=== PATIENT | male | born 1940 | race Caucasian/White ===

== ENCOUNTER 2017-04-12 02:05 | Inpatient (IN) ==
[2017-04-12] MEDS ORDERED: IOPAMIDOL 100 ML BOTTLE IJ ONE (02:06)
[2017-04-12] MEDS ORDERED: ONDANSETRON 4 MG/2 ML VIAL IV ONE (02:49)
--- NOTE | 2017-04-12 02:56 | Emergency Department Note ---
Abdominal Pain HPI - General Chief Complaint: Abdominal Pain Stated Complaint: upper right abd. pain/vomiting Time Seen by Provider: 04/12/17 02:49 Source: patient Mode of arrival: ambulatory - History of Present Illness HPI Narrative: This 76-year-old male comes to the emergency room on his own accord with onset of pain around 9 PM on Tuesday (about 5 hours before his emergency room visit). No previous similar kind of pain. He has had some suspicion of gallbladder disease in 2013. He denies fevers chills or sweats. He has had significant nausea with vomiting since around 9 or 10 PM. He denies diarrhea or constipation or hematochezia. No unusual foods or other changes in his regimen. Is not taking any NSAIDS, EtOH is 1 per week. Has a hx of kidney stone (once). - Related Data Home Medications Medication Instructions Recorded Confirmed Acyclovir [Zovirax] 400 mg PO DAILY 04/12/17 04/12/17 Alfuzosin HCl [Alfuzosin HCl ER] 10 mg PO DAILY 04/12/17 04/12/17 Atorvastatin [Lipitor] 20 mg PO HS 04/12/17 04/12/17 Finasteride [Proscar] 5 mg PO DAILY 04/12/17 04/12/17 Hydrochlorothiazide 12.5 mg PO DAILY 04/12/17 04/12/17 Lisinopril [Zestril] 10 mg PO DAILY 04/12/17 04/12/17 Omeprazole 20 mg PO DAILY 04/12/17 04/12/17 sitaGLIPtin [Januvia] 100 mg PO DAILY 04/12/17 04/12/17 Allergies Allergy/AdvReac Type Severity Reaction Status Date / Time No Known Drug Allergies Allergy Unverified 04/12/17 02:15 Review of Systems Review of Systems: No major weight loss or weight gain. See review of systems. He denies dysuria as well. He denies chest pains and palpitations, shortness of breath, wheezing , syncope, headache, paresthesia of the extremities, weakness. Abdominal Pain PMH - Past Medical History Medical history: Reports: DVT (Left lower extremity in a couple of years ago.), diabetes (Type II, on Januvia.), hypertension, kidney stones, other (NO bradycardia). Denies: coronary artery disease - Social History Smoking status: Current some day smoker Alcohol use: Reports: Occasionally (about once a week one drink.) Physical Exam - General Limitations: other (Somewhat sleepy and tired and limited interactiveness but he does arouse easily and seems appropriate.) General appearance: alert - Eye Eye exam: Present: normal appearance, PERRL, EOMI - ENT ENT exam: mucous membranes dry - Neck Neck exam: Present: trachea midline. Absent: tenderness, lymphadenopathy - Respiratory Respiratory exam: Present: normal lung sounds bilaterally. Absent: respiratory distress, wheezes, stridor, accessory muscle use - Cardiovascular Cardiovascular exam: Present: regular rate (But bradycardic.). Absent: systolic murmur, diastolic murmur - Abdominal Exam Abdominal exam: Present: soft, tenderness (In the right upper quadrant to deep palpation). Absent: distention, guarding, rebound, rigidity, organomegaly, mass Abdominal tenderness: Present: RUQ, moderate - Extremities Exam Extremities exam: Absent: tenderness, normal capillary refill, pedal edema, calf tenderness - Neurological Exam Neurological exam: Present: alert, oriented X3 - Psychiatric Psychiatric exam: Present: flat affect - Skin Skin exam: Present: warm, dry Course Vital Signs Temperature 96.9 F L 04/12/17 02:06 Pulse Rate 58 L 04/12/17 02:06 Respiratory Rate 16 04/12/17 02:06 Blood Pressure 195/110 04/12/17 02:06 Pulse Oximetry (%) 96 04/12/17 02:06 Temperature 96.9 F L 04/12/17 02:06 Pulse Rate 65 04/12/17 06:05 Respiratory Rate 17 04/12/17 06:05 Blood Pressure 187/104 04/12/17 06:01 Pulse Oximetry (%) 87 L 04/12/17 06:05 Abdominal Pain - Lab Data Lab results reviewed: Yes I reviewed the patient's lab results. Result diagrams: 04/12/17 02:58 04/12/17 02:58 Lab Results 04/12/17 04/12/17 04/12/17 Range/Units 02:58 02:58 02:58 WBC 9.0 (4.5-11.0) K/mcL RBC 4.74 (4.50-5.90) M/mcL Hgb 15.1 (13.5-16.5) g/dL Hct 44.2 (41.0-55.0) % POC Hct 43.0 (41.0-55.0) % MCV 93.2 (80.0-100.0) fL MCH 31.8 (26.0-34.0) pg MCHC 34.1 (31.0-36.0) g/dL RDW 13.9 (11.5-14.5) % Plt Count 153 (140-440) K/mcL MPV 9.3 (7.4-10.4) fL Gran % 84.0 H (38.0-78.0) % Lymph % (Auto) 10.0 L (15.5-49.0) % Barron % (Auto) 4.9 (1.0-12.0) % Eos % (Auto) 0.8 (0.0-7.0) % Baso % (Auto) 0.3 (0.0-2.0) % Gran # 7.6 (1.8-8.0) K/mcL Lymph # (Auto) 0.9 L (1.5-4.8) K/mcL Barron # (Auto) 0.4 (0.1-0.9) K/mcL Eos # (Auto) 0.1 (0.0-0.7) K/mcL Baso # (Auto) 0 (0.0-0.3) K/mcL VBG Lactic Acid 1.4 (0.5-2.2) mmol/L POC Sodium 144 (133-145) mmol/L Sodium 144 (133-145) mmol/L POC Potassium 2.5 L* (3.3-5.1) mmol/L Potassium 2.7 L* (3.3-5.1) mmol/L POC Chloride 100 (96-108) mmol/L Chloride 100 (96-108) mmol/L Carbon Dioxide 29 (22-30) mmol/L POC Total CO2 30 (22-30) mmol/L Anion Gap 15.0 (8-16) POC BUN 16 (8-23) mg/dl BUN 15 (8-23) mg/dl Creatinine 0.8 (0.7-1.2) mg/dl POC Creatinine 0.7 (0.7-1.2) mg/dl GFR Calculation 87 Glucose 159 H (70-105) mg/dL POC Glucose 162 H (70-105) mg/dL Calcium 8.9 (8.6-10.4) mg/dl POC WB Ioniz Calcium 1.05 L (1.16-1.32) mmol/L Total Bilirubin 1.0 (0.0-1.0) mg/dL AST 17 (0-37) U/l ALT 12 (0-40) U/l Alkaline Phosphatase 71 (39-117) U/L Total Protein 7.3 (5.9-8.4) gm/dL Albumin 4.5 (3.2-5.2) gm/dL Globulin 2.8 (2.2-3.7) gm/dL Albumin/Globulin Ratio 1.6 (1.0-2.3) Lipase 25 (7-60) U/L - Radiology Data Radiology results reviewed: Yes I reviewed the patient's radiology results. Call from Radiologist, Dr. Farrell, reporting that there are gallstones, gallbladder is enlarged, there is no ductal dilatation or wall thickening. He does have a hiatal hernia. He has multiple diverticula but no CT evidence of diverticulitis. Disposition Pt seen by [facility] [employer] only: No Clinical Impression: Abdominal pain, right upper quadrant, Enlarged gallbladder, Hypokalemia, Diverticulosis large intestine w/o perforation or abscess w/o bleeding Diabetes mellitus type 2, uncontrolled Qualifiers: Diabetes mellitus complication status: with hyperglycemia Diabetes mellitus shelter insulin use: without shelter use Qualified Code(s): E11.65 - Type 2 diabetes mellitus with hyperglycemia Summary: Patient was able to sleep much of the time but intermittent awakening due to needing to go to the bathroom and due to pain. His pain was treated with 1 mg of Dilaudid for this first dose and then a second dose and then was given morphine 4 mg. His called back and reported that previously with a kidney stone Toradol has worked very well for him. Case was discussed with Dr. Mathis, surgeon, with agreement to put him in the hospital and that Dr. Mathis would see him and consider surgical intervention this evening or tomorrow morning. This is in light of his CT findings of gallstones and enlarged gallbladder with persistent right upper quadrant pain. His labs did not demonstrate an elevated white count, he did not have tachycardia, his lactic acid was normal, and he does not exhibit fever. Therefore no antibiotics were given. Patient's care is being transferred to Dr. Mathis who will then further decide interventions. Orders written for repeat BMP because of his hypokalemia (a 30 meq potassium rider was given during the night). He seemed to keep his oral potassium down well although initially had some nausea. At time of discharge, consider holding his hydrochlorothiazide, although his poor po intake and or vomiting ( but was limited) could have contributed. With urinary frequency and small in amounts and on 2 medications for prostate enlargement/disease, I also ordered a postvoid residual. His BP systolic remained rather elevated. he was give an evening dose of 20 mg of lisinopril in early AM hours, and I wrote for 20 mg daily in AM at 9 AM. His usual dose is 10 mg daily. He may need additional anti-htn intervention. Renal function was 0.8 creatinine and so for pain control I added toradol 30 mg IV q 6 hrs PRN. Disposition: Xfer As Outpt/Obs ([facility]) Condition: Fair Additional Instructions: Consider stop hydrochlorothiazide as it may have been the cause of the low potassium or at least contributed. MONITOR BP CAREFULLY. BP med (lisinopril) increase to 20 mg daily. Referrals: Zunilda Larson MD [Primary Care Provider] -
[2017-04-12] MEDS: HYDROmorphone 2 MG/ML SYRINGE IV SCH ×2 (02:58→03:36)
[2017-04-12] MEDS ORDERED: HYDROmorphone 2 MG/ML SYRINGE ONE (02:59)
[2017-04-12] MEDS ORDERED: POTASSIUM CHLORIDE 30 MEQ in DEXTROSE 5% IN WATER 500 ML IV ONE (03:21)
[2017-04-12] MEDS ORDERED: POTASSIUM CHLORIDE 20 MEQ TABLET PO ONE (03:21)
[2017-04-12] MEDS ORDERED: POTASSIUM CHLORIDE 20 MEQ/10 ML VIAL IV ONE (03:29)
[2017-04-12] MEDS ORDERED: POTASSIUM CHLORIDE 10 MEQ TABLET PO ONE (03:30)
[2017-04-12 03:53] LABS: Basophils # (Auto) 0 K/mcL (0.0-0.3); Basophils % (Auto) 0.3 % (0.0-2.0); Eosinophils # (Auto) 0.1 K/mcL (0.0-0.7); Eosinophils % (Auto) 0.8 % (0.0-7.0); Lymphocytes # (Auto) 0.9 K/mcL (1.5-4.8); Mean Cell Volume 93.2 fL (80.0-100.0); Mean Corpuscular HGB Conc 34.1 g/dL (31.0-36.0); Mean Corpuscular Hemoglobin 31.8 pg (26.0-34.0); Monocytes # (Auto) 0.4 K/mcL (0.1-0.9); Monocytes % (Auto) 4.9 % (1.0-12.0); Platelet Count 153 K/mcL (140-440); RBC 4.74 M/mcL (4.50-5.90); Red Cell Distribution Width 13.9 % (11.5-14.5)
[2017-04-12 04:10] LABS: ALT/SGPT 12 U/l (0-40); Albumin 4.5 gm/dL (3.2-5.2); Albumin/Globulin Ratio 1.6 (1.0-2.3); Alkaline Phosphatase 71 U/L (39-117); Blood Urea Nitrogen 15 mg/dl (8-23); Lipase 25 U/L (7-60)
[2017-04-12] MEDS ORDERED: LISINOPRIL 20 MG TABLET PO ONE (05:01)
[2017-04-12] MEDS ORDERED: KETOROLAC 30 MG/ML VIAL IV PRN (06:37)
[2017-04-12] MEDS: HYDROmorphone 2 MG/ML SYRINGE IV PRN ×2 (07:12→12:08)
[2017-04-12] MEDS: LACTATED RINGERS 1,000 ML IV SCH ×3 (09:00→23:16)
[2017-04-12] MEDS: LISINOPRIL 20 MG TABLET PO SCH (09:15)
[2017-04-12] MEDS: PANTOPRAZOLE 40 MG VIAL IV SCH (09:15)
--- NOTE | 2017-04-12 10:51 | Cat Scan Report ---
CLINICAL INFORMATION: Abdominal pain and vomiting COMPARISON: The 02/12/[address] TECHNIQUE: Following enteric contrast, 80 cc of Isovue-300 were injected intravenously, and 60 seconds later, 2.5 mm helical slices were obtained from the mid heart through the subtrochanteric regions. Following reconstruction, 2.5 mm sagittal, coronal and axial reformatted images were processed and reviewed at bone, lung and soft tissue windows. Five minutes later, 5 mm helical slices were obtained from the mid heart through the kidneys and viewed at soft tissue windows. FINDINGS: Moderate hiatal hernia is mildly increased in size. There is bandlike groundglass infiltrate in both posterior lower lobes which is new. Minor basilar scarring also noted. No effusion. The heart is mildly enlarged and extraordinarily heavy fibrofatty calcific plaque seen within the left main, proximal LAD mid LAD and right coronary arteries There are multiple small stones now seen within the gallbladder. Gallbladder is slightly enlarged, but is no evidence of wall thickening to support cholecystitis. Intrahepatic and common bile ducts are normal caliber: CBD is 6 mm. There is a 16.8 mm indeterminate low-attenuation lesion projects from the anterior cortex - superior pole the right kidney. This was not seen on previous abdomen CT or MRI from 02/06/2014. A 15 mm simple cyst in the mid left kidney is unchanged. A few nonobstructing stones within both kidneys are seen, but there is no evidence of obstructing stone or hydronephrosis. The adrenal glands, spleen pancreas and aorta, including aortic branches, are normal in size, configuration and attenuation without focal lesion. Images through the pelvis show urinary bladder to be unremarkable. Prostate and seminal vesicles are normal. Multiple sigmoid diverticuli are present, but no evidence of diverticulitis. The remaining colon and small bowel are unremarkable. The stomach is poorly distended creating apparent thickening of the gastric wall - this is likely normal. Appendix not identified with certainty, but is no inflammation in the region of the appendix. There is no free air, free fluid and no adenopathy. A 3 cm periumbilical hernia contains only mesenteric fat. Bone windows shows no osseous abnormality. IMPRESSION: 1. Cholelithiasis. Gallbladder and bile ducts are otherwise normal 2. 16.8 mm indeterminate low-attenuation lesion - superior pole the right kidney - [address] and MRI 02/06/2014. Suggest ultrasound to determine solid versus cyst 3. Moderate hiatal hernia 4. Extraordinarily heavy fibrofatty plaque in the proximal coronary arteries particularly the left main and LAD and right. Either occlusion or hemodynamically significant stenosis is strongly suspected. Suggest urology referral for stress testing or CT coronary arteriogram 5. Small nonobstructing stones in the calyces of both kidneys - all less than 4 mm Interpreted and Authenticated by: Anthony Farrell 04/12/17
[2017-04-12 11:10] LABS: Blood Urea Nitrogen 13 mg/dl (8-23)
--- NOTE | 2017-04-12 13:11 | XRay Report ---
CLINICAL INFORMATION: Preop COMPARISON: 02/07/2014 FINDINGS: Film was taken with suboptimal inspiratory result, lordotic positioning and right rotation which accentuates the cardiomediastinal silhouette. This is normal. Mild airspace disease in the left base is likely atelectasis or scarring. Similar findings seen 2013. No effusions IMPRESSION: Mild atelectasis or scarring left base Interpreted and Authenticated by: Anthony Farrell 04/12/17
[2017-04-12 13:15] LABS: Basophils # (Auto) 0 K/mcL (0.0-0.3); Basophils % (Auto) 0.1 % (0.0-2.0); Eosinophils # (Auto) 0.1 K/mcL (0.0-0.7); Eosinophils % (Auto) 0.7 % (0.0-7.0); Granulocytes % (Auto) 81.4 % (38.0-78.0); Lymphocytes # (Auto) 0.7 K/mcL (1.5-4.8); Mean Cell Volume 93.3 fL (80.0-100.0); Mean Corpuscular HGB Conc 34.8 g/dL (31.0-36.0); Mean Corpuscular Hemoglobin 32.4 pg (26.0-34.0); Monocytes % (Auto) 10.8 % (1.0-12.0); Platelet Count 148 K/mcL (140-440); RBC 4.15 M/mcL (4.50-5.90); Red Cell Distribution Width 13.6 % (11.5-14.5)
[2017-04-12 13:46] LABS: ALT/SGPT 12 U/l (0-40); Albumin/Globulin Ratio 1.7 (1.0-2.3); Alkaline Phosphatase 53 U/L (39-117); Bilirubin,Direct 0.2 mg/dL (0.0-0.3); Blood Urea Nitrogen 13 mg/dl (8-23); Gamma Glutamyl Transpeptidase 16 U/L (8-61); Magnesium 1.1 mg/dL (1.6-2.5); Uric Acid 3.6 mg/dL (2.5-8.0)
--- NOTE | 2017-04-12 14:28 | General Surg History&Physical ---
History of Present Illness Patient information: Note initiated : 04/12/17 at 2:26 pm Service Date, if different from initiated Date: [] Patient: Surinder Powers a 76 y/o M admitted on for upper right abd. pain/ vomiting. Chief Complaint: Abdominal pain with nausea and vomiting [] HPI: Mr. Powers is a 76 year old M with onset of right subcostal pain with associated nausea and vomiting about 9 PM last evening. He had 5 more episodes of nausea and vomiting and his pain became worse. He was brought to the emergency room where it was noted that he had a tender abdomen. CT of the abdomen revealed dilated gallbladder with stones but no acute inflammation. His liver panel was normal. After his symptoms were controlled he was admitted and he will be prepared for cholecystectomy in the morning. Review of Systems - Constitutional fatigue, malaise, snoring, weakness - EENT Nose, mouth and throat: no dysphagia, no hoarseness - Cardiovascular dyspnea on exertion, other (Shortness of breath at rest), no chest pain at rest , no chest pain with activity - Respiratory dyspnea on exertion, snoring - Gastrointestinal abdominal pain, bloating, constipation, heartburn, nausea, vomiting - Genitourinary change in urinary stream, urinary frequency, urinary hesitancy, urinary urgency - Musculoskeletal abnormal gait, arthralgias - Integumentary no bleeding lesions, no changing lesions, no new lesions, no pruritus, no rash - Neurological no abnormal speech, no confusion, no dizziness, no headache(s), no syncope - Psychiatric no anxiety, no confusion, no depression, no hallucinations - Endocrine fatigue, heat intolerance - Hematologic/Lymphatic no easy bleeding, no easy bruising, no lymphadenopathy - Allergic/Immunologic no tongue swelling, no throat swelling, no itchy eyes, no uticaria, no wheezing , no lip swelling Past History Past medical history: Hypertension Diabetes mellitus Benign prostatic hypertrophy History of DVT left leg Past surgical history: L4 discectomy Left knee arthroscopy Past family history: Father age 86 due to coronary artery disease and [place] Mother age 91 due to general debility after pelvic fracture Past social history: Lives locally Everyday smoker Alcohol use twice a week Denies drug use Medications and Allergies Home Medications Medication Instructions Recorded Confirmed Type Acyclovir [Zovirax] 400 mg PO DAILY 04/12/17 04/12/17 History Alfuzosin HCl [Alfuzosin HCl ER] 10 mg PO DAILY 04/12/17 04/12/17 History Atorvastatin [Lipitor] 20 mg PO HS 04/12/17 04/12/17 History Finasteride [Proscar] 5 mg PO DAILY 04/12/17 04/12/17 History Hydrochlorothiazide 12.5 mg PO DAILY 04/12/17 04/12/17 History Lisinopril [Zestril] 10 mg PO DAILY 04/12/17 04/12/17 History Omeprazole 20 mg PO DAILY 04/12/17 04/12/17 History sitaGLIPtin [Januvia] 100 mg PO DAILY 04/12/17 04/12/17 History Allergies Allergy/AdvReac Type Severity Reaction Status Date / Time No Known Drug Allergies Allergy Unverified 04/12/17 02:15 Exam Temp Pulse Resp BP Pulse Ox 98.0 F 76 16 151/89 94 04/12/17 12:00 04/12/17 08:18 04/12/17 12:00 04/12/17 12:00 04/12/17 12:00 - General physical appearance well developed, well nourished, no distress - Eyes PERRL, normal ocular movement - ENT normal pinna, normal nares, normal mucosa, no hearing loss, no congestion - Head Head exam IM: Present: atraumatic, normocephalic - Neck no masses, no bruits, trachea midline, no lymphadectomy, no venous distension - Cardiovascular Cardiovascular exam IM: Present: normal rate and rhythm, RRR, +S1, +S2. Absent : gallop, JVD, systolic murmur - Respiratory normal expansion, normal respiratory effort, clear to percussion, clear to auscultation - Abdomen Abdomen: Present: soft, tender (Tenderness right subcostal region without guarding or rebound), bowel sounds Hernia: Present: umbilical (Reducible umbilical hernia) - Genitourinary Present: normal penis with no external lesions - Integumentary Present: no rash, no growths, no abnormal pigmentation - Neurologic Present: normal coordination, normal sensation - Musculoskeletal Present: normal gait, normal posture - Psychiatric Present: oriented to time, oriented to person, oriented to place, speech is normal, memory intact Assessment and Plan (1) Cholelithiasis and cholecystitis without obstruction Patient counseled for laparoscopic cholecystectomy which will be done in the morning Status: Acute (2) Hypertension We will hold medications at this time Status: Acute (3) Diabetes mellitus type 2, uncontrolled Well-controlled with sliding scale insulin coverage Status: Acute Qualifiers: Diabetes mellitus complication status: with hyperglycemia Diabetes mellitus half-way insulin use: without terminologist use Qualified Code(s): E11.65 - Type 2 diabetes mellitus with hyperglycemia (4) Hypokalemia Status: Acute
[2017-04-12] MEDS ORDERED: POTASSIUM CHLORIDE 40 MEQ in DEXTROSE 5% IN WATER 500 ML IV ONE (14:39)
[2017-04-12] MEDS ORDERED: MAGNESIUM SULFATE 32.48 MEQ in DEXTROSE 5% IN WATER 50 ML IV ONE (14:39)
[2017-04-12] MEDS: ONDANSETRON 4 MG/2 ML VIAL IV PRN (16:20)
[2017-04-13] MEDS: ONDANSETRON 4 MG/2 ML VIAL IV PRN ×2 (00:04→03:52)
[2017-04-13] MEDS: HYDROmorphone 2 MG/ML SYRINGE IV SCH ×2 (01:41)
[2017-04-13] MEDS: PANTOPRAZOLE 40 MG VIAL IV SCH (06:42)
[2017-04-13 07:06] LABS: Basophils # (Auto) 0 K/mcL (0.0-0.3); Basophils % (Auto) 0.1 % (0.0-2.0); Eosinophils # (Auto) 0.1 K/mcL (0.0-0.7); Eosinophils % (Auto) 0.8 % (0.0-7.0); Granulocytes % (Auto) 80.1 % (38.0-78.0); Lymphocytes # (Auto) 0.8 K/mcL (1.5-4.8); Lymphocytes % (Auto) 6.9 % (15.5-49.0); Mean Cell Volume 93.1 fL (80.0-100.0); Mean Corpuscular Hemoglobin 32.5 pg (26.0-34.0); Monocytes # (Auto) 1.4 K/mcL (0.1-0.9); Monocytes % (Auto) 12.1 % (1.0-12.0); Platelet Count 124 K/mcL (140-440); RBC 3.77 M/mcL (4.50-5.90); Red Cell Distribution Width 13.6 % (11.5-14.5)
[2017-04-13] MEDS ORDERED: cefOXitin 2 GM in DEXTROSE 5% IN WATER 50 ML IV ONE (07:28)
[2017-04-13 07:37] LABS: ALT/SGPT 18 U/l (0-40); Albumin 3.5 gm/dL (3.2-5.2); Albumin/Globulin Ratio 1.5 (1.0-2.3); Alkaline Phosphatase 44 U/L (39-117); Bilirubin,Direct 0.5 mg/dL (0.0-0.3); Blood Urea Nitrogen 12 mg/dl (8-23); Gamma Glutamyl Transpeptidase 16 U/L (8-61); Magnesium 1.9 mg/dL (1.6-2.5)
[2017-04-13] MEDS ORDERED: POTASSIUM CHLORIDE 20 MEQ in DEXTROSE 5% IN WATER 100 ML IV ONE (07:57)
[2017-04-13] MEDS ORDERED: ROCURONIUM 10 MG/ML ML IV ONE (08:00)
[2017-04-13] MEDS ORDERED: LIDOCAINE HCL/PF 100 MG/5 ML SYRINGE IV ONE (08:00)
[2017-04-13] MEDS ORDERED: MIDAZOLAM 2 MG/2 ML VIAL IV ONE (08:00)
[2017-04-13] MEDS ORDERED: fentaNYL 100 MCG/2 ML VIAL IV ONE (08:00)
[2017-04-13] MEDS ORDERED: METOPROLOL TARTRATE 5 MG/5 ML VIAL IV ONE (08:00)
[2017-04-13] MEDS ORDERED: PROPOFOL 200 MG/20 ML VIAL IV ONE (08:00)
[2017-04-13] MEDS ORDERED: GLYCOPYRROLATE 0.2 MG/ML VIAL IV ONE (08:00)
[2017-04-13] MEDS ORDERED: PHENYLEPHRINE 10 MG/ML VIAL IV ONE (08:00)
[2017-04-13] MEDS ORDERED: ONDANSETRON 4 MG/2 ML VIAL IV ONE (08:00)
[2017-04-13] MEDS ORDERED: KETAMINE 100 MG/ML ML IV ONE (08:00)
[2017-04-13] MEDS ORDERED: POTASSIUM CHLORIDE 20 MEQ in DEXTROSE 5% IN WATER 250 ML IV ONE (08:15)
[2017-04-13] MEDS ORDERED: FINASTERIDE 5 MG TABLET PO SCH (09:00)
[2017-04-13] MEDS ORDERED: ACETAMINOPHEN 1,000 MG/100 ML BOTTLE IV ONE (09:01)
[2017-04-13] MEDS ORDERED: METOPROLOL TARTRATE 5 MG/5 ML VIAL IV PRN (09:01)
[2017-04-13] MEDS ORDERED: METHOCARBAMOL 1,000 MG/10 ML VIAL IV PRN (09:01)
[2017-04-13] MEDS ORDERED: HYDROmorphone 2 MG/ML SYRINGE IV PRN ×2 (09:01→10:34)
[2017-04-13] MEDS ORDERED: MEPERIDINE 25 MG/ML SYRINGE IV PRN (09:01)
[2017-04-13] MEDS ORDERED: ONDANSETRON 4 MG/2 ML VIAL IV PRN ×3 (09:01→10:56)
[2017-04-13] MEDS ORDERED: BENZOCAINE/MENTHOL 1 LOZENGE PO PRN (09:01)
[2017-04-13] MEDS ORDERED: fentaNYL 100 MCG/2 ML VIAL IV PRN (09:01)
[2017-04-13] MEDS ORDERED: IPRATROPIUM/ALBUTEROL 3 ML AMPUL.NEB NEB PRN (09:01)
[2017-04-13] MEDS ORDERED: KETOROLAC 15 MG/ML VIAL IV PRN (09:01)
[2017-04-13] MEDS ORDERED: diphenhydrAMINE 50 MG/ML VIAL IV PRN (09:01)
[2017-04-13] MEDS ORDERED: MEPERIDINE 50 MG/ML SYRINGE IM PRN (09:01)
[2017-04-13] MEDS: LACTATED RINGERS 1,000 ML IV SCH ×4 (09:13→21:38)
[2017-04-13] MEDS ORDERED: LACTATED RINGERS 1,000 ML IV SCH ×4 (09:15→10:56)
--- NOTE | 2017-04-13 09:50 | Brief Operative Note ---
Date of procedure: 04/13/17 Pre-op diagnosis: cholelithiasis with cholecystitis Post-op diagnosis: other (acute cholecystitis with cholelithiasis) Procedure: laparoscopic cholecystectomy Grafts/Implants: No (bonnie drainx 1) Anesthesia: GETA Findings: acute severe cholecystitis with empyema of gallbladder Complications: none Surgeon: Mykel Mathis Estimated blood loss (cc): 100 Specimens Removed/Pathology: other (gallbladder and stones) Condition: stable Disposition: PACU
[2017-04-13] MEDS ORDERED: POTASSIUM PHOSPHATE 40 MEQ in DEXTROSE 5% IN WATER 500 ML IV ONE ×2 (10:35→10:56)
[2017-04-13] MEDS ORDERED: MAGNESIUM SULFATE 32.48 MEQ in DEXTROSE 5% IN WATER 50 ML IV ONE ×2 (10:35→10:56)
[2017-04-13] MEDS ORDERED: PIPERACILLIN SODIUM/TAZOBACTAM 3.375 GM in DEXTROSE 5% IN WATER 50 ML IV SCH (12:00)
[2017-04-13] MEDS: PIPERACILLIN SODIUM/TAZOBACTAM 3.375 GM in DEXTROSE 5% IN WATER 50 ML IV SCH ×3 (14:16→23:34)
[2017-04-13] MEDS: HYDROmorphone 2 MG/ML SYRINGE IV PRN (16:43)
[2017-04-13] MEDS: LISINOPRIL 20 MG TABLET PO SCH (18:36)
[2017-04-14] MEDS: LACTATED RINGERS 1,000 ML IV SCH ×2 (03:56→12:53)
[2017-04-14] MEDS ORDERED: PIPERACILLIN SODIUM/TAZOBACTAM 3.375 GM VIAL IV ONE (04:40)
[2017-04-14 05:26] LABS: Basophils # (Auto) 0 K/mcL (0.0-0.3); Basophils % (Auto) 0.1 % (0.0-2.0); Eosinophils # (Auto) 0 K/mcL (0.0-0.7); Eosinophils % (Auto) 0.1 % (0.0-7.0); Granulocytes % (Auto) 81.5 % (38.0-78.0); Lymphocytes # (Auto) 0.7 K/mcL (1.5-4.8); Lymphocytes % (Auto) 7.4 % (15.5-49.0); Mean Cell Volume 94.2 fL (80.0-100.0); Mean Corpuscular HGB Conc 34.7 g/dL (31.0-36.0); Mean Corpuscular Hemoglobin 32.7 pg (26.0-34.0); Monocytes % (Auto) 10.9 % (1.0-12.0); Platelet Count 120 K/mcL (140-440); RBC 3.72 M/mcL (4.50-5.90); Red Cell Distribution Width 14.1 % (11.5-14.5)
[2017-04-14] MEDS: PIPERACILLIN SODIUM/TAZOBACTAM 3.375 GM in DEXTROSE 5% IN WATER 50 ML IV SCH ×4 (05:32→23:46)
[2017-04-14 05:45] LABS: ALT/SGPT 26 U/l (0-40); Albumin 3.1 gm/dL (3.2-5.2); Albumin/Globulin Ratio 1.1 (1.0-2.3); Alkaline Phosphatase 51 U/L (39-117); Bilirubin,Direct 0.4 mg/dL (0.0-0.3); Blood Urea Nitrogen 10 mg/dl (8-23); Gamma Glutamyl Transpeptidase 19 U/L (8-61); Magnesium 2.3 mg/dL (1.6-2.5); Uric Acid 1.7 mg/dL (2.5-8.0)
[2017-04-14] MEDS: PANTOPRAZOLE 40 MG VIAL IV SCH (07:27)
[2017-04-14] MEDS: LISINOPRIL 20 MG TABLET PO SCH (07:28)
[2017-04-14] MEDS: HYDROmorphone 2 MG/ML SYRINGE IV PRN ×3 (07:29→23:40)
[2017-04-14] MEDS ORDERED: PANTOPRAZOLE 40 MG VIAL IV SCH (07:30)
[2017-04-14] MEDS: FINASTERIDE 5 MG TABLET PO SCH (08:33)
[2017-04-14] MEDS ORDERED: LISINOPRIL 20 MG TABLET PO SCH (09:00)
[2017-04-14] MEDS ORDERED: FINASTERIDE 5 MG TABLET PO SCH (09:00)
--- NOTE | 2017-04-14 10:16 | XRay Report ---
CLINICAL INFORMATION: Shortness of breath COMPARISON: 04/12/2017. FINDINGS: The heart is mildly enlarged - slightly increased. Mediastinum shows slight widening. Pulmonary vessels are slightly distended and there is minimal peribronchial vascular edema. Small bibasilar infiltrates or atelectasis has developed. There is a small left pleural effusion IMPRESSION: Mild CHF or volume overload Small bibasilar infiltrates or atelectasis Interpreted and Authenticated by: Anthony Farrell 04/14/17
[2017-04-14] MEDS ORDERED: FUROSEMIDE 40 MG/4 ML VIAL IV ONE (11:36)
[2017-04-14] MEDS ORDERED: MAG HYDROX/AL HYDROX/SIMETH 30 ML ORAL.SUSP PO PRN (12:30)
--- NOTE | 2017-04-14 12:35 | General Surgery Progress Note ---
Subjective Patient reports: feels better, pain is less, tolerating liquids well, flatus, bowel movement, afebrile Narrative: Note initiated : 04/14/17 at 12:31 pm Service Date, if different from initiated Date: [] Patient: Surinder Powers 76 y/o M admitted on for upper right abd. pain/ vomiting. Chief Complaint: [Patient had an eventful morning. He states that he does not have any chest pain or shortness of breath however he did have supraventricular tachycardia with heart rates in the 140s. Blood pressure remained stable and respiratory rate was in the 20s. Chest x-ray show pulmonary vascular congestion and edema. EKG does not show any acute changes except for tachycardia and sinus arrhythmias. His troponin is 0.01 and his proBNP is 1100. His findings are suggestive of pulmonary vascular congestion from volume overload. He has started on diuresis and feels better already. His heart rate is also decreased. He will be observed overnight and considered for discharge tomorrow. Patient also has some heartburn and indigestion. This has been a long-standing problem. His abdominal pain is minimal and his LFTs are normal. He has serosanguineous drainage from his OZZY.] Objective Temp Pulse Resp BP Pulse Ox 98.4 F 120 H 20 116/78 96 04/14/17 12:00 04/14/17 07:30 04/14/17 12:00 04/14/17 12:00 04/14/17 12:00 - Additional Data Intake & Output - Last 24 hours: Intake & Output 04/12/17 04/13/17 04/14/17 04/15/17 05:59 05:59 05:59 05:59 Intake Total 2023 / 2023 3396 / 3396 1000 / 1000 Output Total 895 / 895 2325 / 2325 650 / 650 Balance 1129 / 1129 1071 / 1071 350 / 350 Weight 190 lb 196 lb 195 lb - General physical appearance no distress - Eyes PERRL - ENT no congestion - Neck no venous distension - Respiratory other (Coarse tubular breath sounds with basilar rales; no wheezes) - Cardiovascular Cardiovascular exam: Present: irregular rhythm, JVD, +S1, +S2, systolic murmur. Absent: gallop - Abdomen soft, tender (Mild tenderness around incision sites; minimal abdominal distention with good active bowel sounds. serosanguineous drainage and his OZZY drain) - Integumentary no rash, no growths, no abnormal pigmentation - Neurologic normal coordination, normal sensation - Musculoskeletal normal gait, normal posture - Psychiatric oriented to time, oriented to person, oriented to place, speech is normal, memory intact - Labs 04/14/17 04:11 04/14/17 04:11 Diabetes panel 04/14/17 Range/Units 04:11 Sodium 138 (133-145) mmol/L Potassium 3.5 (3.3-5.1) mmol/L Chloride 100 (96-108) mmol/L Carbon Dioxide 31 H (22-30) mmol/L BUN 10 (8-23) mg/dl Creatinine 0.7 (0.7-1.2) mg/dl Glucose 137 H (70-105) mg/dL Calcium 7.7 L (8.6-10.4) mg/dl AST 23 (0-37) U/l ALT 26 (0-40) U/l Alkaline Phosphatase 51 (39-117) U/L Total Protein 5.9 (5.9-8.4) gm/dL Albumin 3.1 L (3.2-5.2) gm/dL Triglycerides 58 (<150) mg/dl Calcium panel 04/14/17 Range/Units 04:11 Calcium 7.7 L (8.6-10.4) mg/dl Phosphorus 1.3 L (2.7-4.5) mg/dL Albumin 3.1 L (3.2-5.2) gm/dL Pituitary panel 04/14/17 Range/Units 04:11 Sodium 138 (133-145) mmol/L Potassium 3.5 (3.3-5.1) mmol/L Chloride 100 (96-108) mmol/L Carbon Dioxide 31 H (22-30) mmol/L BUN 10 (8-23) mg/dl Creatinine 0.7 (0.7-1.2) mg/dl Glucose 137 H (70-105) mg/dL Calcium 7.7 L (8.6-10.4) mg/dl Adrenal panel 04/14/17 Range/Units 04:11 Sodium 138 (133-145) mmol/L Potassium 3.5 (3.3-5.1) mmol/L Chloride 100 (96-108) mmol/L Carbon Dioxide 31 H (22-30) mmol/L BUN 10 (8-23) mg/dl Creatinine 0.7 (0.7-1.2) mg/dl Glucose 137 H (70-105) mg/dL Calcium 7.7 L (8.6-10.4) mg/dl Total Bilirubin 1.4 H (0.0-1.0) mg/dL AST 23 (0-37) U/l ALT 26 (0-40) U/l Alkaline Phosphatase 51 (39-117) U/L Total Protein 5.9 (5.9-8.4) gm/dL Albumin 3.1 L (3.2-5.2) gm/dL Assessment and Plan (1) Cholelithiasis and cholecystitis without obstruction Status: Acute Assessment and plan: Stable with controlled symptoms. Serosanguineous drainage from OZZY Current Visit: Yes (2) Hypertension Status: Acute Current Visit: Yes (3) Diabetes mellitus type 2, uncontrolled Status: Acute Current Visit: Yes (4) Hypokalemia Status: Acute Current Visit: Yes (5) Pulmonary venous congestion Status: Acute Assessment and plan: Saline lock IV fluids Lasix 40 mg IV 1 Check a.m. labs Lasix 40 mg p.o. at 6 PM KCl 40 mEq twice daily Repeat proBNP in the morning Current Visit: Yes - Time Spent With Patient Total time spent is greater than 50% in coordination of care (as documented) at patient's floor/unit and/or counseling patient:
--- NOTE | 2017-04-14 13:44 | Surgical Pathology Report ---
HISTOLOGY SPECIMEN MICROSCOPIC DIAGNOSIS GALLBLADDER, CHOLECYSTECTOMY: -- NECROTIZING ACUTE AND CHRONIC CHOLECYSTITIS. -- CHOLELITHIASIS. (DMT:sln) PROCEDURAL IMPRESSION Cholelithiasis and cholecystitis. GROSS DESCRIPTION Received in formalin labeled with the patient information, is a 9.5 x 3.8 x 2.7 cm purple-gaona gallbladder. The serosal surface is smooth and glistening with areas of attached yellow-gaona adipose tissue. There are multiple metal clips present. There is a 1.5 cm long staple line across the duct. The lumen contains viscous yellow-red fluid and sludge like material. Also within the lumen are several yellow-green to black multifaceted stones ranging in size from 0.1 to 1.4 cm in greatest dimension. The mucosa is red-gaoan and velvety. The wall is up to 0.5 cm thick. No gross lesions are identified. Hide Cleaner sections submitted - one cassette. (STM:djf) Electronically Signed by: Emiliano Guaman M.D.
[2017-04-14] MEDS: POTASSIUM CHLORIDE 20 MEQ PACKET PO SCH (17:50)
[2017-04-14] MEDS ORDERED: FUROSEMIDE 40 MG TABLET PO ONE (18:00)
[2017-04-14] MEDS ORDERED: diphenhydrAMINE 25 MG CAPSULE PO PRN (18:40)
[2017-04-14] MEDS ORDERED: diphenhydrAMINE 25 MG CAPSULE ONE (20:35)
[2017-04-15] MEDS: PIPERACILLIN SODIUM/TAZOBACTAM 3.375 GM in DEXTROSE 5% IN WATER 50 ML IV SCH ×4 (06:34→23:39)
[2017-04-15 06:39] LABS: Basophils # (Auto) 0 K/mcL (0.0-0.3); Basophils % (Auto) 0.3 % (0.0-2.0); Eosinophils # (Auto) 0.2 K/mcL (0.0-0.7); Eosinophils % (Auto) 3.5 % (0.0-7.0); Granulocytes % (Auto) 68.2 % (38.0-78.0); Lymphocytes # (Auto) 0.9 K/mcL (1.5-4.8); Lymphocytes % (Auto) 16.8 % (15.5-49.0); Mean Cell Volume 94.3 fL (80.0-100.0); Mean Corpuscular HGB Conc 34.5 g/dL (31.0-36.0); Mean Corpuscular Hemoglobin 32.5 pg (26.0-34.0); Monocytes # (Auto) 0.6 K/mcL (0.1-0.9); Monocytes % (Auto) 11.2 % (1.0-12.0); Platelet Count 118 K/mcL (140-440); RBC 3.33 M/mcL (4.50-5.90); Red Cell Distribution Width 13.4 % (11.5-14.5)
[2017-04-15 07:09] LABS: ALT/SGPT 19 U/l (0-40); Albumin/Globulin Ratio 1.2 (1.0-2.3); Alkaline Phosphatase 49 U/L (39-117); Bilirubin,Direct 0.3 mg/dL (0.0-0.3); Blood Urea Nitrogen 10 mg/dl (8-23); Gamma Glutamyl Transpeptidase 16 U/L (8-61); Uric Acid 2.1 mg/dL (2.5-8.0); proBNP 881.3 pg/ml (0-450)
[2017-04-15] MEDS: PANTOPRAZOLE 40 MG VIAL IV SCH (07:14)
[2017-04-15] MEDS: POTASSIUM CHLORIDE 20 MEQ PACKET PO SCH ×2 (07:25→17:22)
[2017-04-15] MEDS: LISINOPRIL 20 MG TABLET PO SCH (08:42)
[2017-04-15] MEDS: FINASTERIDE 5 MG TABLET PO SCH (08:42)
--- NOTE | 2017-04-15 11:02 | General Surgery Progress Note ---
Subjective Patient reports: feels better, pain is less, tolerating a regular diet, flatus, bowel movement, shortness of breath, afebrile Narrative: Note initiated : 04/15/17 at 10:59 am Service Date, if different from initiated Date: [] Patient: Surinder Powers 76 y/o M admitted on for upper right abd. pain/ vomiting. Chief Complaint: [Mr. Powers states that he feels better but he still has significantly exertional dyspnea and he has oxygen saturations in the 84% level when he is off O2. He has significant dyspnea with ambulation. Oxygen saturations on 2 L is 90-92%. He has intermittent wheezes. He denies chest pain with ambulation or at rest. He needs replacement of potassium and phosphorus. His proBNP is decreased. Pathology on his gallbladder showed necrotizing cholecystitis compatible with the empyema that was seen clinically.] Objective Temp Pulse Resp BP Pulse Ox 98.5 F 64 16 153/89 94 04/15/17 07:08 04/15/17 07:01 04/15/17 07:08 04/15/17 07:08 04/15/17 07:08 - Additional Data Intake & Output - Last 24 hours: Intake & Output 04/13/17 04/14/17 04/15/17 04/16/17 05:59 05:59 05:59 05:59 Intake Total 2023 / 2023 3396 / 3396 1250 / 1250 800 / 800 Output Total 895 / 895 2325 / 2325 3112 / 3112 Balance 1129 / 1129 1071 / 1071 -1862 / -1862 800 / 800 Weight 196 lb 195 lb 200 lb - General physical appearance no distress, chronically ill - Eyes PERRL - ENT no congestion - Neck trachea midline, no lymphadectomy, no venous distension - Respiratory other (Bibasilar rales with intermittent expiratory wheezes and rhonchi which clear with cough) - Cardiovascular Cardiovascular exam: Present: irregular rhythm, RRR, +S1, +S2. Absent: JVD - Abdomen soft, non tender (Normal active bowel sounds; incisions look good; serosanguineous drainage minimal) - Integumentary no rash, no growths, no abnormal pigmentation - Neurologic normal coordination, normal sensation - Musculoskeletal normal gait, normal posture - Psychiatric oriented to time, oriented to person, oriented to place, speech is normal, memory intact - Labs 04/15/17 04:20 04/15/17 04:20 Diabetes panel 04/15/17 Range/Units 04:20 Sodium 140 (133-145) mmol/L Potassium 3.2 L (3.3-5.1) mmol/L Chloride 100 (96-108) mmol/L Carbon Dioxide 33 H (22-30) mmol/L BUN 10 (8-23) mg/dl Creatinine 0.7 (0.7-1.2) mg/dl Glucose 93 (70-105) mg/dL Calcium 7.4 L (8.6-10.4) mg/dl AST 15 (0-37) U/l ALT 19 (0-40) U/l Alkaline Phosphatase 49 (39-117) U/L Total Protein 5.5 L (5.9-8.4) gm/dL Albumin 3.0 L (3.2-5.2) gm/dL Triglycerides 77 (<150) mg/dl Calcium panel 04/15/17 Range/Units 04:20 Calcium 7.4 L (8.6-10.4) mg/dl Phosphorus 1.2 L (2.7-4.5) mg/dL Albumin 3.0 L (3.2-5.2) gm/dL Pituitary panel 04/15/17 Range/Units 04:20 Sodium 140 (133-145) mmol/L Potassium 3.2 L (3.3-5.1) mmol/L Chloride 100 (96-108) mmol/L Carbon Dioxide 33 H (22-30) mmol/L BUN 10 (8-23) mg/dl Creatinine 0.7 (0.7-1.2) mg/dl Glucose 93 (70-105) mg/dL Calcium 7.4 L (8.6-10.4) mg/dl Adrenal panel 04/15/17 Range/Units 04:20 Sodium 140 (133-145) mmol/L Potassium 3.2 L (3.3-5.1) mmol/L Chloride 100 (96-108) mmol/L Carbon Dioxide 33 H (22-30) mmol/L BUN 10 (8-23) mg/dl Creatinine 0.7 (0.7-1.2) mg/dl Glucose 93 (70-105) mg/dL Calcium 7.4 L (8.6-10.4) mg/dl Total Bilirubin 1.0 (0.0-1.0) mg/dL AST 15 (0-37) U/l ALT 19 (0-40) U/l Alkaline Phosphatase 49 (39-117) U/L Total Protein 5.5 L (5.9-8.4) gm/dL Albumin 3.0 L (3.2-5.2) gm/dL Assessment and Plan (1) Cholelithiasis and cholecystitis without obstruction Status: Acute Assessment and plan: Stable with controlled symptoms. Serosanguineous drainage from OZZY (2) Hypertension Status: Acute (3) Diabetes mellitus type 2, uncontrolled Status: Acute (4) Hypokalemia Status: Acute Assessment and plan: Continue KCl p.o. twice daily Replace phosphorus IV (5) Pulmonary venous congestion Status: Acute Assessment and plan: Repeat Lasix 40 mg p.o. today Start duo nebs every 4 hours for today Discontinue Espinoza catheter Continue O2 and recheck tomorrow - Time Spent With Patient Total time spent is greater than 50% in coordination of care (as documented) at patient's floor/unit and/or counseling patient:
[2017-04-15] MEDS: TAMSULOSIN 0.4 MG CAPSULE PO SCH ×3 (11:35→23:15)
[2017-04-15] MEDS: POTASSIUM PHOSPHATE 40 MEQ in DEXTROSE 5% IN WATER 500 ML IV SCH ×2 (13:11→17:07)
[2017-04-15] MEDS: IPRATROPIUM/ALBUTEROL 3 ML AMPUL.NEB NEB SCH ×5 (13:27→22:20)
[2017-04-15] MEDS: HYDROmorphone 2 MG/ML SYRINGE IV PRN ×2 (14:47→19:17)
[2017-04-16] MEDS: IPRATROPIUM/ALBUTEROL 3 ML AMPUL.NEB NEB SCH ×3 (03:40→11:45)
[2017-04-16] MEDS: PIPERACILLIN SODIUM/TAZOBACTAM 3.375 GM in DEXTROSE 5% IN WATER 50 ML IV SCH ×2 (05:43→11:56)
[2017-04-16 06:49] LABS: ALT/SGPT 17 U/l (0-40); Albumin 3.2 gm/dL (3.2-5.2); Albumin/Globulin Ratio 1.3 (1.0-2.3); Alkaline Phosphatase 45 U/L (39-117); Bilirubin,Direct 0.2 mg/dL (0.0-0.3); Blood Urea Nitrogen 8 mg/dl (8-23); Gamma Glutamyl Transpeptidase 19 U/L (8-61); Magnesium 1.8 mg/dL (1.6-2.5); Uric Acid 1.6 mg/dL (2.5-8.0)
[2017-04-16 06:54] LABS: Basophils # (Auto) 0 K/mcL (0.0-0.3); Basophils % (Auto) 0.5 % (0.0-2.0); Eosinophils # (Auto) 0.1 K/mcL (0.0-0.7); Eosinophils % (Auto) 3.7 % (0.0-7.0); Granulocytes % (Auto) 65.7 % (38.0-78.0); Lymphocytes # (Auto) 0.8 K/mcL (1.5-4.8); Lymphocytes % (Auto) 19.9 % (15.5-49.0); Mean Cell Volume 93.7 fL (80.0-100.0); Mean Corpuscular Hemoglobin 32.8 pg (26.0-34.0); Monocytes # (Auto) 0.4 K/mcL (0.1-0.9); Monocytes % (Auto) 10.2 % (1.0-12.0); Platelet Count 137 K/mcL (140-440); RBC 3.48 M/mcL (4.50-5.90)
[2017-04-16] MEDS: PANTOPRAZOLE 40 MG VIAL IV SCH (07:09)
[2017-04-16] MEDS: LISINOPRIL 20 MG TABLET PO SCH (08:57)
[2017-04-16] MEDS: POTASSIUM CHLORIDE 20 MEQ PACKET PO SCH (08:58)
[2017-04-16] MEDS: FINASTERIDE 5 MG TABLET PO SCH (08:58)
[2017-04-16] MEDS: TAMSULOSIN 0.4 MG CAPSULE PO SCH (10:45)
--- NOTE | 2017-04-16 11:58 | Discharge Summary ---
Providers - Providers Patient information: Note initiated : 04/16/17 at 11:53 am Service Date, if different from initiated Date: [] Patient: Surinder Powers 76 y/o M admitted on 04/13/17 for upper right abd. pain /vomiting. Chief Complaint: [] Date of admission: 04/12/17 Discharge date: 04/16/17 Attending physician: Mykel Mathis Hospitalization Hospital course: 76-year-old male who presented with acute onset of severe abdominal pain in the right upper quadrant with nausea and vomiting. When seen in the emergency room he had tenderness in the right upper quadrant and CT of the abdomen showed multiple gallstones with a dilated gallbladder and some pericholecystic fluid. He underwent urgent cholecystectomy and was found to have necrotizing cholecystitis with empyema of the gallbladder. In the postoperative. He has some volume overload associated with hypoxemia and tachycardia. His troponin was normal. ProBNP was mildly elevated. He was treated with IV Lasix and discontinuing his baseline IV fluids. He diuresed well but had some difficulty with urinary retention. He a Espinoza catheter was placed temporarily and he was given Flomax. He is voiding now just as he did at home. He states that he voids up to 10 times per day with 5 or 6 voids at night. This is his baseline. He was seen to void spontaneously and he has a fairly strong stream though is apparent is not completely emptying his bladder. He had some electrolyte abnormalities which were corrected. At the present time he is clinically stable. His oxygen saturation is 92% on room air. His lungs are relatively clear except for few fine basilar rales. He does not have wheezes. His abdominal exam is benign. He is stable for discharge home Discharge diagnosis: Acute necrotizing cholecystitis Secondary discharge diagnosis: Volume overload with pulmonary venous congestion Hypokalemia due to Lasix therapy treated and resolved BPH with urinary retention chronic and stable Reason for admission: Recurrent abdominal pain with nausea and vomiting Procedures: Laparoscopic cholecystectomy Pertinent studies/significant findings: CT of abdomen and pelvis Complications: Pulmonary venous congestion due to volume overload Exam Temp Pulse Resp BP Pulse Ox 97.3 F 85 18 151/90 94 04/16/17 11:20 04/16/17 11:47 04/16/17 11:47 04/16/17 11:20 04/16/17 11:20 - General physical appearance well developed, well nourished, no distress - Eyes PERRL, normal ocular movement - ENT normal pinna, normal nares, normal mucosa, no hearing loss, no congestion - Head Head exam IM: Present: atraumatic, normocephalic - Neck no masses, no bruits, trachea midline, no lymphadectomy, no venous distension - Cardiovascular Cardiovascular exam IM: Present: normal rate and rhythm - Respiratory normal expansion, normal respiratory effort, other (Mild basilar rales without wheezes and with good breath sounds) - Abdomen Abdomen: Present: soft, non tender, bowel sounds Hernia: Present: none - Genitourinary Present: normal penis with no external lesions - Integumentary Present: no rash, no growths, no abnormal pigmentation - Neurologic Present: normal coordination, normal sensation - Musculoskeletal Present: normal gait, normal posture - Psychiatric Present: oriented to time, oriented to person, oriented to place, speech is normal, memory intact Discharge Plan - Patient/Caregiver Discharge Instructions Activity: increase activity as tolerated Diet: Low Fat Additional Instructions: Consider stop hydrochlorothiazide as it may have been the cause of the low potassium or at least contributed. MONITOR BP CAREFULLY. BP med (lisinopril) increase to 20 mg daily. Prescriptions: Levofloxacin [Levaquin] 500 mg PO DAILY #7 tablet oxyCODONE HCL/ACETAMINOPHEN [Endocet 10-325 mg Tablet] 1 tab PO Q4H PRN #30 tablet PRN Reason: Pain - Follow up Plan Follow up with: Mykel Mathis MD [Physician] - 04/28/17 2:30 pm Zunilda Larson MD [Primary Care Provider] - Disposition: Home, Self-Care Prognosis: Good Rehab Potential: Good I certify that the patient requires SNF services.: No Overall status at discharge: patient is not back to baseline Pending Studies Resuscitation Status Full Code Diet Regular Diet Start TueApr 13 Lunch Al Hydrox/Mg Hydrox/Simethicone (Maalox) 30 ml PO Q4HP PRN PRN Reason: Dyspepsia Last Admin: 04/16/17 03:40 Dose: 30 ml Albuterol/Ipratropium (Duoneb) 3 ml NEB Q4HRT CLARISA Last Admin: 04/16/17 11:45 Dose: 3 ml Admin: 04/16/17 08:26 Dose: 3 ml Admin: 04/16/17 03:40 Dose: 3 ml Admin: 04/15/17 22:20 Dose: Not Given Admin: 04/15/17 18:35 Dose: 3 ml Admin: 04/15/17 15:07 Dose: 3 ml Admin: 04/15/17 13:27 Dose: Diagnostic Test (Pha) (Accu-Chek) 1 each FS Q4 CLARISA Last Admin: 04/16/17 08:57 Dose: 1 each Admin: 04/16/17 03:41 Dose: 1 each Admin: 04/15/17 23:39 Dose: 1 each Admin: 04/15/17 20:31 Dose: 1 each Admin: 04/15/17 16:48 Dose: 1 each Admin: 04/15/17 11:37 Dose: 1 each Admin: 04/15/17 07:14 Dose: 1 each Admin: 04/15/17 04:20 Dose: 1 each Admin: 04/15/17 00:45 Dose: 1 each Admin: 04/14/17 20:42 Dose: 1 each Admin: 04/14/17 16:00 Dose: 1 each Admin: 04/14/17 12:16 Dose: 1 each Admin: 04/14/17 07:26 Dose: 1 each Admin: 04/14/17 03:40 Dose: 1 each Admin: 04/13/17 23:34 Dose: 1 each Admin: 04/13/17 19:27 Dose: 1 each Admin: 04/13/17 16:31 Dose: Admin: 04/13/17 11:24 Dose: 1 each Diphenhydramine HCl (Benadryl) 50 mg PO HSP PRN PRN Reason: Insomnia Last Admin: 04/15/17 20:32 Dose: 50 mg Finasteride (Proscar) 5 mg PO DAILY CLARISA Last Admin: 04/16/17 08:58 Dose: 5 mg Admin: 04/15/17 08:42 Dose: 5 mg Admin: 04/14/17 08:33 Dose: 5 mg Hydromorphone HCl (Dilaudid) 1 mg IV Q2HP PRN PRN Reason: Pain Last Admin: 04/15/17 19:17 Dose: 1 mg Admin: 04/15/17 14:47 Dose: 1 mg Admin: 04/14/17 23:40 Dose: 1 mg Admin: 04/14/17 15:57 Dose: 1 mg Admin: 04/14/17 07:29 Dose: 1 mg Admin: 04/13/17 16:43 Dose: 1 mg Piperacillin Sod/Tazobactam (Sod 3.375 gm/ Dextrose) 50 mls @ 100 mls/hr IV Q6H [facility] Last Admin: 04/16/17 05:43 Dose: 100 mls/hr Infusion: 04/16/17 00:09 Dose: 100 mls/hr Admin: 04/15/17 23:39 Dose: 100 mls/hr Infusion: 04/15/17 17:50 Dose: 100 mls/hr Admin: 04/15/17 17:20 Dose: 100 mls/hr Infusion: 04/15/17 12:05 Dose: 100 mls/hr Admin: 04/15/17 11:35 Dose: 100 mls/hr Infusion: 04/15/17 07:04 Dose: 100 mls/hr Admin: 04/15/17 06:34 Dose: 100 mls/hr Infusion: 04/15/17 00:16 Dose: 100 mls/hr Admin: 04/14/17 23:46 Dose: 100 mls/hr Infusion: 04/14/17 18:21 Dose: 100 mls/hr Admin: 04/14/17 17:51 Dose: 100 mls/hr Infusion: 04/14/17 12:42 Dose: 100 mls/hr Admin: 04/14/17 12:12 Dose: 100 mls/hr Admin: 04/14/17 05:32 Dose: Infusion: 04/14/17 00:04 Dose: 100 mls/hr Admin: 04/13/17 23:34 Dose: 100 mls/hr Infusion: 04/13/17 19:02 Dose: 100 mls/hr Admin: 04/13/17 18:32 Dose: 100 mls/hr Infusion: 04/13/17 14:46 Dose: 100 mls/hr Admin: 04/13/17 14:16 Dose: 100 mls/hr Lisinopril (Zestril) 20 mg PO DAILY [facility] Last Admin: 04/16/17 08:57 Dose: 20 mg Admin: 04/15/17 08:42 Dose: 20 mg Admin: 04/14/17 07:28 Dose: 20 mg Pantoprazole Sodium (Protonix) 40 mg IV QAMAC [facility] Last Admin: 04/16/17 07:09 Dose: 40 mg Admin: 04/15/17 07:14 Dose: 40 mg Admin: 04/14/17 07:27 Dose: 40 mg Potassium Chloride (Klor-Con) 40 meq PO BIDCC [facility] Last Admin: 04/16/17 08:58 Dose: 40 meq Admin: 04/15/17 17:22 Dose: 40 meq Admin: 04/15/17 07:25 Dose: 40 meq Admin: 04/14/17 17:50 Dose: 40 meq Tamsulosin HCl (Flomax) 0.4 mg PO Q12H [facility] Last Admin: 04/16/17 10:45 Dose: 0.4 mg Admin: 04/15/17 23:15 Dose: Admin: 04/15/17 20:33 Dose: 0.4 mg Admin: 04/15/17 11:35 Dose: 0.4 mg Shift Summary 04/16/17 04:23 Shift Summary by Megan [email or web address]. Up with FWW. BP is running a little high. On 2L O2 via NC with scheduled breathing tx's. 4 surgical sites to abdomen from lap ben with digna and Tegaderm in place. All sites were changed yesterday and are CDI. OZZY drain to right side of abdomen that is draining a small amount of serosanguineous drainage. Espinoza catheter was removed yesterday. Patient is using urinal in bed. PRN order for bladder scan states to perform post void. Patient has not been alerting staff after he voids; only one PVR was done and indicated that patient is still retaining urine. Patient was started on Flomax 0.4mg BID yesterday. 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 Patient had them in place for the majority of the night but then removed them himself and refused to allow placement stating, "they are too confining." Initialized on 04/16/17 04:23 - END OF NOTE
--- NOTE | 2017-04-27 11:55 | Operative Note ---
DATE OF OPERATION: 04/13/2017 PREOPERATIVE DIAGNOSIS: Cholelithiasis with cholecystitis. POSTOPERATIVE DIAGNOSIS: Acute cholecystitis with cholecystitis. PROCEDURE: Laparoscopic cholecystectomy. SURGEON: Mykel Mathis MD FINDINGS: Acute severe cholecystitis with empyema of the gallbladder. DESCRIPTION OF PROCEDURE: Under general anesthesia, patient's abdomen was prepped and draped in a sterile field. A supraumbilical incision was made. Veress needle was inserted. The abdomen was insufflated with 3 liters C02. A 12 mm port was placed. The laparoscope was placed. A severely dilated, edematous gallbladder was encountered. Under videoscopic guidance, a 12 mm port and two 5 mm ports were placed in the right subcostal region. The needle was placed through the more medial port and the gallbladder was aspirated with removal of a large volume of pure pus. This allowed the gallbladder to be grasped in position. Using primarily blunt dissection, the cystic duct and cystic artery branches were dissected. The cystic duct was divided with an Endo GI stapler. This was done adjacent to the wall of the gallbladder. Cystic artery and two branches were dissected, and clipped with multiple clips and then divided. The gallbladder was then from the infrahepatic bed using electrocautery. It was placed in an Endopouch and retrieved. There was significant bleeding and there was about 100 mL of estimated blood loss. Hemostasis was achieved with electrocautery. OZZY drain was placed in the subhepatic space. C02 was allowed to escape in the abdomen and the ports were removed. Fascia of the umbilicus was closed with 0 Vicryl. The OZZY drain was secured with 2-0 Nylon. Skin incisions were closed with digna. Tegaderm dressings were placed. The patient tolerated the procedure well. He was awakened, transferred to a bed and taken to the Post-Anesthetic Care Unit in stable satisfactory condition. LCS:rubina Job ID: [id number] Doc ID: [id number] Mykel Mathis M.D.
== END 2017-04-16 13:50 | disposition home or self-care (01) | DRG 419 ==
LOC: ED 02:05 → MEDSUR 08:09
PROVIDERS: ADMIT Family Medicine Adult Medicine; ATTEND Family Medicine Adult Medicine

== ENCOUNTER 2024-05-17 05:07 | Inpatient (IN) ==
[2024-05-14 10:35] LABS: Basophils # (Auto) 0.01 K/mcL (0.00-0.30); Basophils % (Auto) 0.2 % (0.0-2.0); Eosinophils # (Auto) 0.17 K/mcL (0.00-0.70); Eosinophils % (Auto) 3.3 % (0.0-7.0); Hematocrit 30.6 % (40.1-51.0); Hemoglobin 10.2 g/dL (13.7-17.5); Lymphocytes # (Auto) 1.28 K/mcL (1.50-4.80); Lymphocytes % (Auto) 25.1 % (15.5-49.0); Mean Cell Volume 92.4 fL (80.0-100.0); Mean Corpuscular HGB Conc 33.3 g/dL (31.0-36.0); Mean Platelet Volume 9.5 fL (8.8-12.5); Monocytes # (Auto) 0.52 K/mcL (0.10-0.90); Monocytes % (Auto) 10.2 % (1.0-12.0); Platelet Count 160 K/mcL (140-440); RBC 3.31 M/mcL (4.63-6.08); Red Cell Distribution Width 13.6 % (11.5-14.5); WBC 5.1 K/mcL (4.5-11.0)
[2024-05-14 11:03] LABS: Blood Urea Nitrogen 17 mg/dL (8-23); Calcium 8.2 mg/dL (8.6-10.4); Carbon Dioxide 26 mmol/L (22-30); Chloride 101 mmol/L (96-108); Glomerular Filtration Rate 69; Glucose 117 mg/dL (70-105); Potassium 4.3 mmol/L (3.3-5.1); Sodium 139 mmol/L (133-145)
[2024-05-14 12:49] LABS: Hemoglobin A1C 6.3 % Hgb (4.0-6.0)
[2024-05-17] MEDS: 0.9 % SODIUM CHLORIDE 250 ML IV SCH (06:37)
[2024-05-17] MEDS ORDERED: fentaNYL 100 MCG/2 ML VIAL ONE (07:15)
[2024-05-17] MEDS ORDERED: KETAMINE 50 MG/ML Syringe IV ONE (07:15)
[2024-05-17] MEDS ORDERED: SUGAMMADEX SODIUM 200 MG/2 ML VIAL IV ONE (07:15)
[2024-05-17] MEDS ORDERED: PROPOFOL 200 MG/20 ML VIAL IV ONE (07:15)
[2024-05-17] MEDS ORDERED: HYDROmorphone 0.5 MG/0.5 ML SYRINGE ONE ×2 (07:16→09:04)
[2024-05-17] MEDS ORDERED: ROCURONIUM 10 MG/ML ML IV ONE ×2 (07:17→10:46)
[2024-05-17] MEDS ORDERED: DEXAMETHASONE 10 MG/ML VIAL ONE (07:19)
[2024-05-17] MEDS ORDERED: ONDANSETRON 4 MG/2 ML VIAL ONE ×2 (07:19→08:23)
[2024-05-17] MEDS ORDERED: GLYCOPYRROLATE 0.2 MG/ML VIAL IV ONE (07:19)
[2024-05-17] MEDS: PIPERACILLIN SODIUM/TAZOBACTAM 3.375 GM in DEXTROSE 5% IN WATER 50 ML IV SCH (07:21)
[2024-05-17] MEDS ORDERED: MAGNESIUM SULFATE 2 GM/50 ML BAG IV ONE (08:17)
[2024-05-17] MEDS ORDERED: ePHEDrine 50 MG/5 ML SYRINGE (ANEST) IV ONE (08:34)
[2024-05-17] MEDS: ALBUMIN HUMAN 25 GM/100 ML BAG IV ONE (08:39)
[2024-05-17] MEDS ORDERED: hydrALAZINE 20 MG/ML VIAL ONE (09:54)
[2024-05-17] MEDS ORDERED: METOPROLOL TARTRATE 5 MG/5 ML VIAL IV ONE (09:54)
[2024-05-17] MEDS ORDERED: PHENYLephrine 1 MG/10 ML SYRINGE (ANEST) ONE (10:39)
[2024-05-17] MEDS ORDERED: IPRATROPIUM/ALBUTEROL 3 ML AMPUL.NEB NEB PRN (11:37)
[2024-05-17] MEDS ORDERED: HYDROmorphone 0.5 MG/0.5 ML SYRINGE IV PRN (11:37)
[2024-05-17] MEDS ORDERED: ONDANSETRON 4 MG/2 ML VIAL IV PRN (11:37)
[2024-05-17] MEDS: BACITRACIN TOPICAL OINT 15 GM TUBE TOPICAL ONE (11:50)
[2024-05-17] MEDS: fentaNYL 100 MCG/2 ML VIAL IV PRN (12:49)
[2024-05-17] MEDS: LACTATED RINGERS 1,000 ML IV SCH (13:22)
[2024-05-17] MEDS: DEXTROSE 5%-1/2NS W/10MEQ KCL 1,000 ML IV SCH (13:23)
[2024-05-17] MEDS: ACETAMINOPHEN 1,000 MG/100 ML BAG IV ONE (13:25)
[2024-05-17] MEDS: PIPERACILLIN SODIUM/TAZOBACTAM 3.375 GM in DEXTROSE 5% IN WATER 100 ML IV SCH (13:34)
[2024-05-17] MEDS: HYDROmorphone 0.5 MG/0.5 ML SYRINGE IV PRN (14:20)
[2024-05-17] MEDS: PANTOPRAZOLE 40 MG VIAL IV SCH (16:23)
[2024-05-18] MEDS: ONDANSETRON 4 MG/2 ML VIAL IV PRN (02:44)
[2024-05-18 05:50] LABS: Hematocrit 29.8 % (40.1-51.0); Mean Cell Volume 91.1 fL (80.0-100.0); Mean Corpuscular HGB Conc 33.6 g/dL (31.0-36.0); Mean Platelet Volume 9.2 fL (8.8-12.5); Platelet Count 153 K/mcL (140-440); RBC 3.27 M/mcL (4.63-6.08); Red Cell Distribution Width 13.5 % (11.5-14.5); WBC 7.5 K/mcL (4.5-11.0)
[2024-05-18 06:19] LABS: ALT/SGPT < 5 U/L (<40); AST/SGOT 13 U/L (<40); Albumin 3.3 gm/dL (3.2-5.2); Albumin/Globulin Ratio 1.6 (1.0-2.3); Alkaline Phosphatase 47 U/L (39-117); Bilirubin,Total 0.7 mg/dL (0.1-1.0); Blood Urea Nitrogen 13 mg/dL (8-23); Calcium 7.4 mg/dL (8.6-10.4); Carbon Dioxide 25 mmol/L (22-30); Chloride 101 mmol/L (96-108); Globulin 2.1 gm/dL (2.2-3.7); Glomerular Filtration Rate 69; Glucose 234 mg/dL (70-105); Potassium 3.3 mmol/L (3.3-5.1); Sodium 137 mmol/L (133-145)
[2024-05-18] MEDS ORDERED: SUCRETS LOZENGE PO PRN (10:35)
[2024-05-18] MEDS: ACETAMINOPHEN 650 MG/65 ML BAG IV PRN (10:50)
[2024-05-18] MEDS: BENZOCAINE ONE 20% 1 SPRAY TOPICAL PRN (10:53)
[2024-05-18] MEDS ORDERED: BENZOCAINE ONE 20% 1 SPRAY TOPICAL PRN (10:58)
[2024-05-18] MEDS ORDERED: BENZOCAINE/MENTHOL 1 LOZENGE PO PRN (10:59)
[2024-05-18] MEDS: BENZOCAINE/MENTHOL 1 LOZENGE PO PRN (15:43)
[2024-05-18] MEDS: ATORVASTATIN 20 MG TABLET PO SCH (21:33)
[2024-05-19 06:04] LABS: Basophils # (Auto) 0.01 K/mcL (0.00-0.30); Basophils % (Auto) 0.1 % (0.0-2.0); Eosinophils # (Auto) 0.04 K/mcL (0.00-0.70); Eosinophils % (Auto) 0.6 % (0.0-7.0); Hematocrit 28.9 % (40.1-51.0); Hemoglobin 9.7 g/dL (13.7-17.5); Lymphocytes # (Auto) 0.82 K/mcL (1.50-4.80); Lymphocytes % (Auto) 11.9 % (15.5-49.0); Mean Cell Volume 90.6 fL (80.0-100.0); Mean Corpuscular HGB Conc 33.6 g/dL (31.0-36.0); Mean Platelet Volume 9.5 fL (8.8-12.5); Monocytes # (Auto) 0.59 K/mcL (0.10-0.90); Monocytes % (Auto) 8.5 % (1.0-12.0); Neutrophils % (Auto) 78.6 % (38.0-78.0); Platelet Count 159 K/mcL (140-440); RBC 3.19 M/mcL (4.63-6.08); Red Cell Distribution Width 13.6 % (11.5-14.5); WBC 6.9 K/mcL (4.5-11.0)
[2024-05-19 06:43] LABS: Blood Urea Nitrogen 7 mg/dL (8-23); Calcium 7.3 mg/dL (8.6-10.4); Carbon Dioxide 25 mmol/L (22-30); Chloride 103 mmol/L (96-108); Glomerular Filtration Rate 82; Glucose 162 mg/dL (70-105); Potassium 3.4 mmol/L (3.3-5.1); Sodium 136 mmol/L (133-145)
[2024-05-19] MEDS: TAMSULOSIN 0.4 MG CAPSULE PO SCH (09:46)
[2024-05-20 06:27] LABS: Blood Urea Nitrogen 5 mg/dL (8-23); Calcium 7.4 mg/dL (8.6-10.4); Carbon Dioxide 25 mmol/L (22-30); Chloride 103 mmol/L (96-108); Glomerular Filtration Rate 82; Glucose 160 mg/dL (70-105); Potassium 3.5 mmol/L (3.3-5.1); Sodium 137 mmol/L (133-145)
[2024-05-20] MEDS: CALCIUM CARBONATE 500 MG TAB.CHEW CHEWED PRN (14:47)
[2024-05-20] MEDS: METOCLOPRAMIDE 10 MG/2 ML VIAL IV SCH (17:50)
[2024-05-20] MEDS: diphenhydrAMINE 50 MG/ML VIAL IV SCH (21:49)
[2024-05-21 06:17] LABS: Basophils # (Auto) 0.01 K/mcL (0.00-0.30); Basophils % (Auto) 0.1 % (0.0-2.0); Eosinophils % (Auto) 2.8 % (0.0-7.0); Hematocrit 33.4 % (40.1-51.0); Hemoglobin 11.5 g/dL (13.7-17.5); Lymphocytes # (Auto) 1.14 K/mcL (1.50-4.80); Lymphocytes % (Auto) 15.7 % (15.5-49.0); Mean Cell Volume 87.4 fL (80.0-100.0); Mean Corpuscular HGB Conc 34.4 g/dL (31.0-36.0); Mean Platelet Volume 9.2 fL (8.8-12.5); Monocytes # (Auto) 0.76 K/mcL (0.10-0.90); Monocytes % (Auto) 10.5 % (1.0-12.0); Neutrophils % (Auto) 70.5 % (38.0-78.0); Platelet Count 205 K/mcL (140-440); RBC 3.82 M/mcL (4.63-6.08); Red Cell Distribution Width 13.3 % (11.5-14.5); WBC 7.3 K/mcL (4.5-11.0)
[2024-05-21 06:27] LABS: Blood Urea Nitrogen 5 mg/dL (8-23); Calcium 7.4 mg/dL (8.6-10.4); Carbon Dioxide 25 mmol/L (22-30); Chloride 104 mmol/L (96-108); Glomerular Filtration Rate 82; Glucose 165 mg/dL (70-105); Potassium 3.6 mmol/L (3.3-5.1); Sodium 138 mmol/L (133-145)
[2024-05-21] MEDS: HEPARIN 5,000 UNIT/ML VIAL SQ SCH (21:03)
[2024-05-21] MEDS: DEXTROSE 5%-1/2NS W/10MEQ KCL 1,000 ML IV SCH (21:03)
[2024-05-21] MEDS: FUROSEMIDE 20 MG/2 ML VIAL IV SCH (21:11)
[2024-05-21] MEDS: FUROSEMIDE 20 MG/2 ML VIAL IV ONE (21:46)
[2024-05-22 05:59] LABS: Hemoglobin 11.2 g/dL (13.7-17.5); Mean Cell Volume 86.7 fL (80.0-100.0); Mean Platelet Volume 9.2 fL (8.8-12.5); Platelet Count 201 K/mcL (140-440); RBC 3.69 M/mcL (4.63-6.08); Red Cell Distribution Width 13.2 % (11.5-14.5); WBC 6.6 K/mcL (4.5-11.0)
[2024-05-22 06:27] LABS: Blood Urea Nitrogen 7 mg/dL (8-23); Calcium 7.7 mg/dL (8.6-10.4); Carbon Dioxide 25 mmol/L (22-30); Chloride 104 mmol/L (96-108); Glomerular Filtration Rate 78; Glucose 155 mg/dL (70-105); Potassium 3.6 mmol/L (3.3-5.1); Sodium 138 mmol/L (133-145)
[2024-05-22] MEDS: LOSARTAN 50 MG TABLET PO SCH (08:35)
[2024-05-22] MEDS: BISACODYL 10 MG SUPP.RECT PR SCH (08:36)
[2024-05-22] MEDS: DEXTROSE 5%-1/2NS W/20MEQ KCL 1,000 ML IV SCH (15:19)
[2024-05-23 06:35] LABS: Hematocrit 33.9 % (40.1-51.0); Hemoglobin 11.4 g/dL (13.7-17.5); Mean Cell Volume 89.9 fL (80.0-100.0); Mean Corpuscular HGB Conc 33.6 g/dL (31.0-36.0); Mean Platelet Volume 9.2 fL (8.8-12.5); Platelet Count 207 K/mcL (140-440); RBC 3.77 M/mcL (4.63-6.08); Red Cell Distribution Width 13.2 % (11.5-14.5)
[2024-05-23 06:41] LABS: Blood Urea Nitrogen 9 mg/dL (8-23); Calcium 8.1 mg/dL (8.6-10.4); Carbon Dioxide 27 mmol/L (22-30); Chloride 100 mmol/L (96-108); Glomerular Filtration Rate 78; Glucose 150 mg/dL (70-105); Potassium 3.5 mmol/L (3.3-5.1); Sodium 136 mmol/L (133-145)
[2024-05-23] MEDS: DEXTROSE 5%-1/2NS W/20MEQ KCL 1,000 ML IV SCH ×2 (16:22→20:03)
[2024-05-24 06:39] LABS: Basophils # (Auto) 0.01 K/mcL (0.00-0.30); Basophils % (Auto) 0.1 % (0.0-2.0); Eosinophils # (Auto) 0.19 K/mcL (0.00-0.70); Eosinophils % (Auto) 2.7 % (0.0-7.0); Hemoglobin 11.6 g/dL (13.7-17.5); Lymphocytes # (Auto) 1.34 K/mcL (1.50-4.80); Lymphocytes % (Auto) 19.1 % (15.5-49.0); Mean Cell Volume 88.5 fL (80.0-100.0); Mean Corpuscular HGB Conc 34.1 g/dL (31.0-36.0); Mean Platelet Volume 9.1 fL (8.8-12.5); Monocytes # (Auto) 0.91 K/mcL (0.10-0.90); Neutrophils % (Auto) 64.5 % (38.0-78.0); Platelet Count 236 K/mcL (140-440); RBC 3.84 M/mcL (4.63-6.08)
[2024-05-24 06:45] LABS: ALT/SGPT 6 U/L (<40); AST/SGOT 20 U/L (<40); Albumin 3.2 gm/dL (3.2-5.2); Albumin/Globulin Ratio 1.3 (1.0-2.3); Alkaline Phosphatase 55 U/L (39-117); Bilirubin,Total 0.6 mg/dL (0.1-1.0); Blood Urea Nitrogen 8 mg/dL (8-23); Calcium 8.3 mg/dL (8.6-10.4); Carbon Dioxide 26 mmol/L (22-30); Chloride 100 mmol/L (96-108); Globulin 2.4 gm/dL (2.2-3.7); Glomerular Filtration Rate 82; Glucose 185 mg/dL (70-105); Potassium 3.4 mmol/L (3.3-5.1); Sodium 136 mmol/L (133-145)
[2024-05-25 05:46] LABS: Basophils # (Auto) 0.01 K/mcL (0.00-0.30); Basophils % (Auto) 0.2 % (0.0-2.0); Eosinophils # (Auto) 0.37 K/mcL (0.00-0.70); Eosinophils % (Auto) 6.9 % (0.0-7.0); Hematocrit 31.3 % (40.1-51.0); Hemoglobin 10.5 g/dL (13.7-17.5); Lymphocytes # (Auto) 1.16 K/mcL (1.50-4.80); Lymphocytes % (Auto) 21.5 % (15.5-49.0); Mean Cell Volume 89.7 fL (80.0-100.0); Mean Corpuscular HGB Conc 33.5 g/dL (31.0-36.0); Mean Platelet Volume 9.1 fL (8.8-12.5); Monocytes # (Auto) 0.76 K/mcL (0.10-0.90); Monocytes % (Auto) 14.1 % (1.0-12.0); Neutrophils % (Auto) 56.4 % (38.0-78.0); Platelet Count 194 K/mcL (140-440); RBC 3.49 M/mcL (4.63-6.08); Red Cell Distribution Width 13.5 % (11.5-14.5); WBC 5.4 K/mcL (4.5-11.0)
[2024-05-25 06:44] LABS: Blood Urea Nitrogen 6 mg/dL (8-23); Carbon Dioxide 25 mmol/L (22-30); Chloride 103 mmol/L (96-108); Glomerular Filtration Rate 78; Glucose 155 mg/dL (70-105); Potassium 3.6 mmol/L (3.3-5.1); Sodium 137 mmol/L (133-145)
[2024-05-25] MEDS ORDERED: BISOPROLOL/HCTZ 5MG 1 TABLET PO SCH (09:00)
[2024-05-25] MEDS: BISOPROLOL 5 MG TABLET PO SCH (09:28)
[2024-05-25] MEDS: HYDROCHLOROTHIAZIDE 25 MG TABLET PO SCH (09:29)
[2024-05-25] MEDS: DEXTROSE 5%-1/2NS W/20MEQ KCL 1,000 ML IV SCH (13:11)
[2024-05-25] MEDS: ZOLPIDEM 5 MG TABLET PO PRN (23:06)
[2024-05-25] MEDS: ZOLPIDEM 5 MG TABLET ONE (23:06)
[2024-05-26 08:26] LABS: Hematocrit 29.8 % (40.1-51.0); Hemoglobin 10.1 g/dL (13.7-17.5); Mean Cell Volume 89.8 fL (80.0-100.0); Mean Corpuscular HGB Conc 33.9 g/dL (31.0-36.0); Mean Platelet Volume 9.1 fL (8.8-12.5); Platelet Count 208 K/mcL (140-440); RBC 3.32 M/mcL (4.63-6.08); Red Cell Distribution Width 13.5 % (11.5-14.5); WBC 5.5 K/mcL (4.5-11.0)
[2024-05-26 08:47] LABS: Blood Urea Nitrogen 3 mg/dL (8-23); Calcium 7.9 mg/dL (8.6-10.4); Carbon Dioxide 24 mmol/L (22-30); Chloride 103 mmol/L (96-108); Glomerular Filtration Rate 78; Glucose 157 mg/dL (70-105); Potassium 3.3 mmol/L (3.3-5.1); Sodium 135 mmol/L (133-145)
[2024-05-27 06:12] LABS: Basophils # (Auto) 0.01 K/mcL (0.00-0.30); Basophils % (Auto) 0.2 % (0.0-2.0); Eosinophils # (Auto) 0.34 K/mcL (0.00-0.70); Eosinophils % (Auto) 7.5 % (0.0-7.0); Hemoglobin 9.5 g/dL (13.7-17.5); Lymphocytes # (Auto) 1.29 K/mcL (1.50-4.80); Lymphocytes % (Auto) 28.5 % (15.5-49.0); Mean Corpuscular HGB Conc 33.9 g/dL (31.0-36.0); Mean Platelet Volume 9.3 fL (8.8-12.5); Monocytes # (Auto) 0.59 K/mcL (0.10-0.90); Neutrophils % (Auto) 50.1 % (38.0-78.0); Platelet Count 194 K/mcL (140-440); RBC 3.11 M/mcL (4.63-6.08); Red Cell Distribution Width 13.4 % (11.5-14.5); WBC 4.5 K/mcL (4.5-11.0)
[2024-05-27 06:48] LABS: Blood Urea Nitrogen 4 mg/dL (8-23); Calcium 7.4 mg/dL (8.6-10.4); Carbon Dioxide 22 mmol/L (22-30); Chloride 104 mmol/L (96-108); Glomerular Filtration Rate 78; Glucose 123 mg/dL (70-105); Potassium 3.1 mmol/L (3.3-5.1); Sodium 136 mmol/L (133-145)
[2024-05-27] MEDS ORDERED: HYDROcodone/APAP 5/325MG TABLET PO PRN (11:44)
[2024-05-27] MEDS: DEXTROSE 5%-1/2NS W/20MEQ KCL 1,000 ML IV SCH (11:58)
[2024-05-27] MEDS: POTASSIUM CHLORIDE 20 MEQ TABLET PO SCH (16:09)
[2024-05-27] MEDS: traZODone HCL 50 MG TABLET PO SCH (21:09)
[2024-05-28 06:35] LABS: Basophils # (Auto) 0.03 K/mcL (0.00-0.30); Basophils % (Auto) 0.6 % (0.0-2.0); Eosinophils # (Auto) 0.29 K/mcL (0.00-0.70); Eosinophils % (Auto) 5.3 % (0.0-7.0); Hematocrit 28.3 % (40.1-51.0); Hemoglobin 9.5 g/dL (13.7-17.5); Lymphocytes # (Auto) 1.16 K/mcL (1.50-4.80); Lymphocytes % (Auto) 21.3 % (15.5-49.0); Mean Corpuscular HGB Conc 33.6 g/dL (31.0-36.0); Mean Platelet Volume 9.6 fL (8.8-12.5); Monocytes # (Auto) 0.53 K/mcL (0.10-0.90); Monocytes % (Auto) 9.7 % (1.0-12.0); Neutrophils % (Auto) 62.7 % (38.0-78.0); Platelet Count 208 K/mcL (140-440); RBC 3.11 M/mcL (4.63-6.08); Red Cell Distribution Width 13.7 % (11.5-14.5); WBC 5.4 K/mcL (4.5-11.0)
[2024-05-28 06:46] LABS: Blood Urea Nitrogen 3 mg/dL (8-23); Calcium 7.6 mg/dL (8.6-10.4); Carbon Dioxide 24 mmol/L (22-30); Chloride 105 mmol/L (96-108); Glomerular Filtration Rate 78; Glucose 125 mg/dL (70-105); Potassium 3.2 mmol/L (3.3-5.1); Sodium 138 mmol/L (133-145)
[2024-05-28] MEDS: POTASSIUM CHLORIDE 20 MEQ TABLET PO SCH (08:30)
[2024-05-28] MEDS ORDERED: POTASSIUM CHLORIDE 20 MEQ TABLET PO SCH (09:00)
== END 2024-05-28 11:39 | disposition home or self-care (01) | DRG 331 ==
LOC: MEDSUR 05:07 → EDSTATUS 07:30
PROVIDERS: ADMIT Surgery Surgical Critical Care; ATTEND Surgery Surgical Critical Care

== ENCOUNTER 2024-07-06 10:22 | Inpatient (IN) ==
[2024-07-06] MEDS ORDERED: IOPAMIDOL 100 ML BOTTLE IV ONE (10:23)
[2024-07-06] MEDS: 0.9 % SODIUM CHLORIDE 500 ML IV ONE (11:03)
[2024-07-06] MEDS: METOCLOPRAMIDE 10 MG/2 ML VIAL IV ONE (11:03)
[2024-07-06 11:30] LABS: Basophils # (Auto) 0.01 K/mcL (0.00-0.30); Basophils % (Auto) 0.2 % (0.0-2.0); Eosinophils # (Auto) 0.02 K/mcL (0.00-0.70); Eosinophils % (Auto) 0.4 % (0.0-7.0); Hematocrit 34.2 % (40.1-51.0); Hemoglobin 11.3 g/dL (13.7-17.5); Lymphocytes # (Auto) 0.82 K/mcL (1.50-4.80); Mean Cell Volume 92.2 fL (80.0-100.0); Monocytes # (Auto) 0.36 K/mcL (0.10-0.90); Monocytes % (Auto) 7.5 % (1.0-12.0); Neutrophils % (Auto) 74.3 % (38.0-78.0); Platelet Count 129 K/mcL (140-440); RBC 3.71 M/mcL (4.63-6.08); Red Cell Distribution Width 12.6 % (11.5-14.5); WBC 4.8 K/mcL (4.5-11.0)
[2024-07-06 11:48] LABS: ALT/SGPT 17 U/L (<40); AST/SGOT 31 U/L (<40); Albumin 3.6 gm/dL (3.2-5.2); Albumin/Globulin Ratio 1.4 (1.0-2.3); Alkaline Phosphatase 63 U/L (39-117); Bilirubin,Total 0.8 mg/dL (0.1-1.0); Blood Urea Nitrogen 12 mg/dL (8-23); Calcium 6.2 mg/dL (8.6-10.4); Carbon Dioxide 24 mmol/L (22-30); Chloride 102 mmol/L (96-108); Globulin 2.5 gm/dL (2.2-3.7); Glomerular Filtration Rate 82; Glucose 114 mg/dL (70-105); Potassium 3.3 mmol/L (3.3-5.1); Sodium 142 mmol/L (133-145)
[2024-07-06] MEDS: CALCIUM GLUCONATE 4.65 MEQ in DEXTROSE 5% IN WATER 50 ML IV ONE (12:14)
[2024-07-06 13:43] LABS: Appearance,Urine Clear (Clear); Bilirubin,Urine Negative (Negative); Color,Urine Yellow; Glucose,Urine (UA) Negative (Negative); Ketones,Urine Trace mg/dL (Negative); Leukocyte Esterase,Urine Negative /uL (Negative); Nitrate,Urine Negative (Negative); Protein,Urine Negative (Negative); Urine Blood Trace-intact ery/mcL (Negative); Urine Hyaline Cast 1 /lph (0-2); Urine RBC 0 /hpf (0-3); Urine Squamous Epithelial Cell 0 /hpf (0-4); Urine WBC 0 /hpf (0-4); Urobilinogen,Urine Normal
[2024-07-06] MEDS: MAGNESIUM SULFATE 4 GM/100 ML BAG IV ONE (14:20)
[2024-07-06] MEDS: MAGNESIUM SULFATE 2 GM/50 ML BAG IV ONE ×4 (14:20→17:52)
[2024-07-06] MEDS ORDERED: PROCHLORPERAZINE 10 MG/2 ML VIAL IV PRN (16:52)
[2024-07-06] MEDS ORDERED: DEXTROSE 31 GM ORAL.SUSP PO PRN (16:52)
[2024-07-06] MEDS ORDERED: MAGNESIUM SULFATE 2 GM/50 ML BAG IV PRN (16:52)
[2024-07-06] MEDS ORDERED: ONDANSETRON 4 MG/2 ML VIAL IV PRN (16:52)
[2024-07-06] MEDS ORDERED: IPRATROPIUM/ALBUTEROL 3 ML AMPUL.NEB NEB PRN (16:52)
[2024-07-06] MEDS ORDERED: DEXTROSE 50% 50 ML VIAL IV PRN (16:52)
[2024-07-06] MEDS ORDERED: SENNOSIDES 1 TABLET PO PRN (16:52)
[2024-07-06] MEDS ORDERED: POTASSIUM CHLORIDE 40 MEQ in DEXTROSE 5% IN WATER 500 ML IV PRN (16:52)
[2024-07-06] MEDS ORDERED: POLYETHYLENE GLYCOL 3350 17 GM PACKET PO PRN (16:52)
[2024-07-06] MEDS: 0.9 % SODIUM CHLORIDE 1,000 ML IV ONE (17:09)
[2024-07-06] MEDS: INSULIN LISPRO 1 UNIT/0.01 ML UNIT SQ SCH (17:09)
[2024-07-06 17:55] LABS: Vitamin D 25 Hydroxy-SO 9.97 ng/mL (>30.00)
[2024-07-06] MEDS: POTASSIUM CHLORIDE 20 MEQ TABLET PO PRN (17:57)
[2024-07-06] MEDS: VITAMIN D3 25 MCG TABLET PO SCH (19:11)
[2024-07-06] MEDS: FAMOTIDINE 20 MG TABLET PO SCH (20:34)
[2024-07-06] MEDS: DOCUSATE SODIUM 100 MG CAPSULE PO SCH (20:34)
[2024-07-06] MEDS: 0.9 % SODIUM CHLORIDE 10 ML SYRINGE IV SCH (20:35)
[2024-07-06 20:52] LABS: Calcium 6.3 mg/dL (8.6-10.4)
[2024-07-06] MEDS: CALCIUM CARBONATE 500 MG TAB.CHEW CHEWED ONE (22:15)
[2024-07-06] MEDS: TAMSULOSIN 0.4 MG CAPSULE PO SCH (22:15)
[2024-07-06] MEDS: CALCIUM GLUCONATE 9.3 MEQ in DEXTROSE 5% IN WATER 50 ML IV ONE (22:17)
[2024-07-06] MEDS: CALCIUM GLUCONATE 4.65 MEQ/10 ML VIAL ONE (22:18)
[2024-07-07 06:38] LABS: ALT/SGPT 19 U/L (<40); AST/SGOT 27 U/L (<40); Albumin 3.1 gm/dL (3.2-5.2); Albumin/Globulin Ratio 1.5 (1.0-2.3); Alkaline Phosphatase 57 U/L (39-117); Bilirubin,Direct 0.4 mg/dL (<0.3); Bilirubin,Total 0.8 mg/dL (0.1-1.0); Blood Urea Nitrogen 11 mg/dL (8-23); Calcium 6.4 mg/dL (8.6-10.4); Carbon Dioxide 23 mmol/L (22-30); Chloride 103 mmol/L (96-108); Globulin 2.1 gm/dL (2.2-3.7); Glomerular Filtration Rate 78; Glucose 156 mg/dL (70-105); Lactate Dehydrogenase 218 U/L (135-225); Phosphorous 2.8 mg/dL (2.5-4.5); Potassium 3.2 mmol/L (3.3-5.1); Sodium 139 mmol/L (133-145); Triglycerides 75 mg/dL (<150); Uric Acid 3.4 mg/dL (2.5-8.0)
[2024-07-07] MEDS: POTASSIUM CHLORIDE 20 MEQ TABLET PO PRN (08:54)
[2024-07-07] MEDS: LOSARTAN 50 MG TABLET PO SCH (08:54)
[2024-07-07] MEDS: ENOXAPARIN 40 MG/0.4 ML SYRINGE SQ SCH (08:54)
[2024-07-07] MEDS: MAGNESIUM OXIDE 400 MG TABLET PO ONE (08:54)
[2024-07-07] MEDS: CALCIUM GLUCONATE 9.3 MEQ in DEXTROSE 5% IN WATER 50 ML IV ONE (09:09)
[2024-07-07] MEDS: HYDROcodone/APAP 5/325MG TABLET PO PRN (09:11)
[2024-07-07] MEDS: CALCIUM GLUCONATE 4.65 MEQ/10 ML VIAL IV ONE (09:49)
[2024-07-07 13:45] LABS: Calcium 6.9 mg/dL (8.6-10.4)
[2024-07-07] MEDS: CALCIUM GLUCONATE 9.3 MEQ in DEXTROSE 5% IN WATER 100 ML IV ONE (15:35)
[2024-07-07] MEDS: ACETAMINOPHEN 325 MG TABLET PO PRN (19:50)
[2024-07-08] MEDS: 0.9 % SODIUM CHLORIDE 250 ML IV ONE (00:43)
[2024-07-08 06:26] LABS: ALT/SGPT 21 U/L (<40); AST/SGOT 27 U/L (<40); Albumin 3.3 gm/dL (3.2-5.2); Albumin/Globulin Ratio 1.5 (1.0-2.3); Alkaline Phosphatase 78 U/L (39-117); Bilirubin,Direct 0.4 mg/dL (<0.3); Bilirubin,Total 0.8 mg/dL (0.1-1.0); Blood Urea Nitrogen 13 mg/dL (8-23); Calcium 7.8 mg/dL (8.6-10.4); Carbon Dioxide 25 mmol/L (22-30); Chloride 106 mmol/L (96-108); Globulin 2.2 gm/dL (2.2-3.7); Glomerular Filtration Rate 87; Glucose 94 mg/dL (70-105); Lactate Dehydrogenase 208 U/L (135-225); Phosphorous 1.8 mg/dL (2.5-4.5); Potassium 4.1 mmol/L (3.3-5.1); Sodium 139 mmol/L (133-145); Triglycerides 59 mg/dL (<150); Uric Acid 2.5 mg/dL (2.5-8.0)
[2024-07-08] MEDS: MAGNESIUM SULFATE 2 GM/50 ML BAG IV ONE (07:55)
[2024-07-08] MEDS: POTASSIUM PHOSPHATE 40 MEQ in DEXTROSE 5% IN WATER 500 ML IV ONE (08:49)
[2024-07-08] MEDS: CALCIUM GLUCONATE 9.3 MEQ in DEXTROSE 5% IN WATER 100 ML IV ONE (08:49)
[2024-07-08] MEDS: MAGNESIUM OXIDE 400 MG TABLET PO SCH (08:50)
[2024-07-08] MEDS: PHOSPHORUS 250 MG TABLET PO SCH (08:50)
[2024-07-08] MEDS: CALCIUM CARBONATE 500 MG TAB.CHEW CHEWED PRN (18:43)
[2024-07-08] MEDS: ENALAPRILAT 1.25 MG/ML VIAL IV PRN (19:13)
[2024-07-08 21:24] LABS: Phosphorous 2.4 mg/dL (2.5-4.5)
[2024-07-08 21:25] LABS: Blood Urea Nitrogen 14 mg/dL (8-23); Carbon Dioxide 26 mmol/L (22-30); Chloride 103 mmol/L (96-108); Glomerular Filtration Rate 82; Glucose 115 mg/dL (70-105); Potassium 4.6 mmol/L (3.3-5.1); Sodium 137 mmol/L (133-145)
[2024-07-08] MEDS: NEUTRA PHOS 1 PACKET PO ONE (23:19)
[2024-07-08] MEDS: NEUTRA PHOS 1 PACKET ONE (23:23)
[2024-07-08] MEDS: CALCIUM GLUCONATE 4.65 MEQ/10 ML VIAL ONE (23:24)
[2024-07-09] MEDS: CALCIUM GLUCONATE 9.3 MEQ in DEXTROSE 5% IN WATER 50 ML IV ONE (00:08)
[2024-07-09 06:11] LABS: Basophils # (Auto) 0.03 K/mcL (0.00-0.30); Basophils % (Auto) 0.8 % (0.0-2.0); Eosinophils # (Auto) 0.15 K/mcL (0.00-0.70); Eosinophils % (Auto) 3.9 % (0.0-7.0); Hematocrit 30.8 % (40.1-51.0); Hemoglobin 10.2 g/dL (13.7-17.5); Lymphocytes # (Auto) 1.16 K/mcL (1.50-4.80); Lymphocytes % (Auto) 30.1 % (15.5-49.0); Mean Cell Volume 91.4 fL (80.0-100.0); Mean Corpuscular HGB Conc 33.1 g/dL (31.0-36.0); Monocytes # (Auto) 0.42 K/mcL (0.10-0.90); Monocytes % (Auto) 10.9 % (1.0-12.0); Neutrophils % (Auto) 53.5 % (38.0-78.0); Platelet Count 151 K/mcL (140-440); RBC 3.37 M/mcL (4.63-6.08); Red Cell Distribution Width 12.7 % (11.5-14.5); WBC 3.9 K/mcL (4.5-11.0)
[2024-07-09 06:23] LABS: ALT/SGPT 29 U/L (<40); AST/SGOT 34 U/L (<40); Albumin 3.3 gm/dL (3.2-5.2); Albumin/Globulin Ratio 1.4 (1.0-2.3); Alkaline Phosphatase 80 U/L (39-117); Bilirubin,Direct 0.3 mg/dL (<0.3); Bilirubin,Total 0.6 mg/dL (0.1-1.0); Blood Urea Nitrogen 12 mg/dL (8-23); Calcium 8.8 mg/dL (8.6-10.4); Carbon Dioxide 23 mmol/L (22-30); Chloride 104 mmol/L (96-108); Globulin 2.3 gm/dL (2.2-3.7); Glomerular Filtration Rate 87; Glucose 98 mg/dL (70-105); Lactate Dehydrogenase 200 U/L (135-225); Phosphorous 2.3 mg/dL (2.5-4.5); Potassium 4.6 mmol/L (3.3-5.1); Sodium 136 mmol/L (133-145); Triglycerides 68 mg/dL (<150); Uric Acid 2.1 mg/dL (2.5-8.0)
[2024-07-09] MEDS: SODIUM PHOSPHATE 30 MMOL in DEXTROSE 5% IN WATER 500 ML IV ONE (08:28)
[2024-07-09] MEDS: amLODIPine 5 MG TABLET PO SCH (12:12)
[2024-07-09] MEDS: MAGNESIUM SULFATE 1 GM/100 ML BAG IV ONE (12:45)
[2024-07-09] MEDS ORDERED: NEUTRA PHOS 1 PACKET PO SCH (21:00)
[2024-07-20 11:24] LABS: Vit D 1,25 Dihydroxy 30.5 pg/mL (24.8-81.5)
== END 2024-07-09 13:28 | DRG 640 ==
LOC: ED 10:22 → ICU 16:47 → MEDSUR 07-08 16:17
PROVIDERS: ADMIT Internal Medicine; ATTEND Student in an Organized Health Care Education/Training Program

== ENCOUNTER 2024-07-31 01:39 | Inpatient (IN) ==
[2024-07-31] MEDS ORDERED: IOPAMIDOL 100 ML BOTTLE IV ONE (01:40)
[2024-07-31] MEDS: 0.9 % SODIUM CHLORIDE 1,000 ML IV ONE (02:17)
[2024-07-31] MEDS: fentaNYL 100 MCG/2 ML VIAL IV ONE (02:17)
[2024-07-31] MEDS: ONDANSETRON 4 MG/2 ML VIAL IV ONE ×2 (02:18→05:40)
[2024-07-31 02:34] LABS: Basophils # (Auto) 0.02 K/mcL (0.00-0.30); Basophils % (Auto) 0.3 % (0.0-2.0); Eosinophils # (Auto) 0.04 K/mcL (0.00-0.70); Eosinophils % (Auto) 0.5 % (0.0-7.0); Hemoglobin 12.3 g/dL (13.7-17.5); Lymphocytes % (Auto) 14.3 % (15.5-49.0); Mean Cell Volume 91.6 fL (80.0-100.0); Mean Corpuscular HGB Conc 34.2 g/dL (31.0-36.0); Mean Platelet Volume 10.4 fL (8.8-12.5); Monocytes # (Auto) 0.98 K/mcL (0.10-0.90); Monocytes % (Auto) 12.7 % (1.0-12.0); Neutrophils % (Auto) 71.4 % (38.0-78.0); Platelet Count 168 K/mcL (140-440); RBC 3.93 M/mcL (4.63-6.08); Red Cell Distribution Width 13.8 % (11.5-14.5); WBC 7.7 K/mcL (4.5-11.0)
[2024-07-31 03:03] LABS: ALT/SGPT 9 U/L (<40); AST/SGOT 20 U/L (<40); Albumin 3.8 gm/dL (3.2-5.2); Albumin/Globulin Ratio 1.6 (1.0-2.3); Alkaline Phosphatase 65 U/L (39-117); Bilirubin,Total 1.1 mg/dL (0.1-1.0); Blood Urea Nitrogen 12 mg/dL (8-23); Calcium 7.2 mg/dL (8.6-10.4); Carbon Dioxide 29 mmol/L (22-30); Chloride 100 mmol/L (96-108); Globulin 2.4 gm/dL (2.2-3.7); Glomerular Filtration Rate 82; Glucose 148 mg/dL (70-105); Potassium 2.8 mmol/L (3.3-5.1); Sodium 143 mmol/L (133-145)
[2024-07-31] MEDS: POTASSIUM CHLORIDE 20 MEQ in DEXTROSE 5% IN WATER 250 ML IV ONE (04:38)
[2024-07-31 04:53] LABS: Appearance,Urine HAZY (Clear); Bacteria,Urine MOD /hpf (0); Bilirubin,Urine Negative (Negative); Color,Urine AMBER; Glucose,Urine (UA) Negative (Negative); Ketones,Urine 5 mg/dL (Negative); Leukocyte Esterase,Urine Negative /uL (Negative); Mucus,Urine MANY /hpf; Nitrate,Urine POS (Negative); Protein,Urine 30 mg/dL (Negative); Specific Gravity,Urine 1.049 (1.000-1.035); Urine Blood Negative (Negative); Urine RBC 6 /hpf (0-3); Urine Squamous Epithelial Cell 1 /hpf (0-4); Urine WBC 24 /hpf (0-4)
[2024-07-31] MEDS: MAGNESIUM SULFATE 2 GM/50 ML BAG IV ONE ×2 (04:53→08:18)
[2024-07-31] MEDS: CIPROFLOXACIN 400 MG/200 ML BAG IV ONE (06:50)
[2024-07-31] MEDS: CALCIUM CHLORIDE 1,000 MG in DEXTROSE 5% IN WATER 50 ML IV ONE (06:50)
[2024-07-31] MEDS: metroNIDAZOLE 500 MG/100 ML BAG IV ONE (06:50)
[2024-07-31] MEDS: POTASSIUM CHLORIDE 10 MEQ/100 ML BAG IV SCH (08:00)
[2024-07-31] MEDS: MAGNESIUM SULFATE 4 GM/100 ML BAG IV ONE (08:00)
[2024-07-31] MEDS: POTASSIUM CHLORIDE 20 MEQ TABLET PO ONE (08:00)
[2024-07-31] MEDS: POTASSIUM CHLORIDE 40 MEQ in DEXTROSE 5% IN WATER 500 ML IV ONE (08:15)
[2024-07-31] MEDS ORDERED: ONDANSETRON 4 MG/2 ML VIAL IV PRN ×2 (08:58→10:57)
[2024-07-31 09:04] LABS: ALT/SGPT 6 U/L (<40); AST/SGOT 15 U/L (<40); Albumin 3.3 gm/dL (3.2-5.2); Albumin/Globulin Ratio 1.7 (1.0-2.3); Alkaline Phosphatase 52 U/L (39-117); Bilirubin,Direct 0.4 mg/dL (<0.3); Bilirubin,Total 0.7 mg/dL (0.1-1.0); Blood Urea Nitrogen 12 mg/dL (8-23); Calcium 6.9 mg/dL (8.6-10.4); Carbon Dioxide 26 mmol/L (22-30); Chloride 102 mmol/L (96-108); Globulin 1.9 gm/dL (2.2-3.7); Glomerular Filtration Rate 87; Glucose 169 mg/dL (70-105); Lactate Dehydrogenase 167 U/L (135-225); Phosphorous 3.3 mg/dL (2.5-4.5); Potassium 2.7 mmol/L (3.3-5.1); Sodium 141 mmol/L (133-145); Triglycerides 45 mg/dL (<150)
[2024-07-31] MEDS: DOCUSATE SODIUM 100 MG CAPSULE PO SCH (09:22)
[2024-07-31] MEDS ORDERED: SENNOSIDES 1 TABLET PO PRN (10:57)
[2024-07-31] MEDS ORDERED: DEXTROSE 31 GM ORAL.SUSP PO PRN (10:57)
[2024-07-31] MEDS ORDERED: DEXTROSE 50% 50 ML VIAL IV PRN (10:57)
[2024-07-31] MEDS ORDERED: ACETAMINOPHEN 325 MG TABLET PO PRN (10:57)
[2024-07-31] MEDS ORDERED: CALCIUM CARBONATE 500 MG TAB.CHEW PO PRN (11:10)
[2024-07-31] MEDS: MAGNESIUM SULFATE 4 GM/100 ML BAG IV SCH (11:25)
[2024-07-31] MEDS: INSULIN LISPRO 1 UNIT/0.01 ML UNIT SQ SCH (12:07)
[2024-07-31] MEDS: 0.9 % SODIUM CHLORIDE 1,000 ML IV SCH (12:29)
[2024-07-31] MEDS: metroNIDAZOLE 500 MG/100 ML BAG IV SCH (14:23)
[2024-07-31] MEDS: 0.9 % SODIUM CHLORIDE 10 ML SYRINGE IV SCH (14:24)
[2024-07-31 17:59] LABS: Potassium 3.6 mmol/L (3.3-5.1)
[2024-07-31] MEDS: HEPARIN 5,000 UNIT/ML VIAL SQ SCH (20:50)
[2024-07-31] MEDS: CIPROFLOXACIN 400 MG/200 ML BAG IV SCH (20:50)
[2024-07-31] MEDS: traZODone HCL 50 MG TABLET PO PRN (20:50)
[2024-07-31] MEDS: TAMSULOSIN 0.4 MG CAPSULE PO SCH (20:50)
[2024-08-01 06:29] LABS: Basophils # (Auto) 0.01 K/mcL (0.00-0.30); Basophils % (Auto) 0.2 % (0.0-2.0); Eosinophils # (Auto) 0.17 K/mcL (0.00-0.70); Eosinophils % (Auto) 3.6 % (0.0-7.0); Hematocrit 31.4 % (40.1-51.0); Lymphocytes # (Auto) 0.84 K/mcL (1.50-4.80); Lymphocytes % (Auto) 17.6 % (15.5-49.0); Mean Cell Volume 101.6 fL (80.0-100.0); Mean Corpuscular HGB Conc 31.8 g/dL (31.0-36.0); Mean Platelet Volume 10.2 fL (8.8-12.5); Monocytes # (Auto) 0.69 K/mcL (0.10-0.90); Monocytes % (Auto) 14.4 % (1.0-12.0); Neutrophils % (Auto) 63.6 % (38.0-78.0); Platelet Count 138 K/mcL (140-440); RBC 3.09 M/mcL (4.63-6.08); Red Cell Distribution Width 14.2 % (11.5-14.5); WBC 4.8 K/mcL (4.5-11.0)
[2024-08-01 07:52] LABS: Blood Urea Nitrogen 17 mg/dL (8-23); Carbon Dioxide 27 mmol/L (22-30); Chloride 102 mmol/L (96-108); Glomerular Filtration Rate 69; Glucose 108 mg/dL (70-105); Potassium 3.8 mmol/L (3.3-5.1); Sodium 137 mmol/L (133-145)
[2024-08-01] MEDS ORDERED: [UNRECOGNIZED DRUG - OTHER] PO SCH (09:00)
[2024-08-01] MEDS ORDERED: VITAMINS A C E ZINC COPPER PO SCH (09:00)
[2024-08-01] MEDS: VITAMIN D3 25 MCG TABLET PO SCH (09:03)
[2024-08-01] MEDS: sitaGLIPtin 100 MG TABLET PO SCH (09:03)
[2024-08-01] MEDS: OMEPRAZOLE 20 MG CAPSULE PO SCH (09:03)
[2024-08-01] MEDS: amLODIPine 5 MG TABLET PO SCH (09:03)
[2024-08-01] MEDS: valACYclovir 500 MG TABLET PO SCH (09:03)
[2024-08-01] MEDS: LOSARTAN 50 MG TABLET PO SCH (09:03)
[2024-08-01] MEDS: ATORVASTATIN 20 MG TABLET PO SCH (09:03)
[2024-08-01] MEDS: CALCIUM GLUCONATE 4.65 MEQ/10 ML VIAL IV ONE (09:17)
[2024-08-01] MEDS: CALCIUM GLUCONATE 9.3 MEQ in DEXTROSE 5% IN WATER 100 ML IV ONE (11:02)
[2024-08-01] MEDS: POTASSIUM PHOSPHATE 40 MEQ in DEXTROSE 5% IN WATER 500 ML IV ONE (11:02)
[2024-08-01] MEDS: metroNIDAZOLE 500 MG TABLET PO SCH (13:55)
[2024-08-01] MEDS: CEFDINIR 300 MG CAPSULE PO SCH (20:37)
[2024-08-01] MEDS: NEUTRA PHOS 1 PACKET PO ONE (20:37)
[2024-08-01] MEDS ORDERED: CIPROFLOXACIN 500 MG TABLET PO SCH (21:00)
[2024-08-02 06:34] LABS: Basophils # (Auto) 0.02 K/mcL (0.00-0.30); Basophils % (Auto) 0.5 % (0.0-2.0); Eosinophils # (Auto) 0.16 K/mcL (0.00-0.70); Hematocrit 29.1 % (40.1-51.0); Hemoglobin 9.7 g/dL (13.7-17.5); Lymphocytes # (Auto) 0.96 K/mcL (1.50-4.80); Lymphocytes % (Auto) 23.9 % (15.5-49.0); Mean Cell Volume 95.4 fL (80.0-100.0); Mean Corpuscular HGB Conc 33.3 g/dL (31.0-36.0); Mean Platelet Volume 10.1 fL (8.8-12.5); Monocytes # (Auto) 0.59 K/mcL (0.10-0.90); Monocytes % (Auto) 14.7 % (1.0-12.0); Neutrophils % (Auto) 55.9 % (38.0-78.0); Platelet Count 151 K/mcL (140-440); RBC 3.05 M/mcL (4.63-6.08); Red Cell Distribution Width 14.2 % (11.5-14.5)
[2024-08-02 06:54] LABS: ALT/SGPT 7 U/L (<40); AST/SGOT 18 U/L (<40); Albumin/Globulin Ratio 1.5 (1.0-2.3); Alkaline Phosphatase 72 U/L (39-117); Bilirubin,Direct 0.3 mg/dL (<0.3); Bilirubin,Total 0.4 mg/dL (0.1-1.0); Blood Urea Nitrogen 15 mg/dL (8-23); Calcium 7.6 mg/dL (8.6-10.4); Carbon Dioxide 26 mmol/L (22-30); Chloride 105 mmol/L (96-108); Glomerular Filtration Rate 82; Glucose 124 mg/dL (70-105); Lactate Dehydrogenase 232 U/L (135-225); Phosphorous 2.3 mg/dL (2.5-4.5); Potassium 4.3 mmol/L (3.3-5.1); Sodium 139 mmol/L (133-145); Triglycerides 36 mg/dL (<150); Uric Acid 3.5 mg/dL (2.5-8.0)
[2024-08-02] MEDS: CALCIUM (OYSTER SHELL) 500 MG TABLET PO ONE (09:00)
[2024-08-02] MEDS: DOCUSATE SODIUM 100 MG CAPSULE PO PRN (09:53)
== END 2024-08-02 13:56 | DRG 641 ==
LOC: ED 01:39 → ICU 10:13 → MEDSUR 08-01 14:01
PROVIDERS: ADMIT Student in an Organized Health Care Education/Training Program; ATTEND Internal Medicine